=== PATIENT | male | born 1940 | race Caucasian/White ===

== ENCOUNTER 2019-08-09 15:05 | Emergency (ER) | payer MEDICARE, MEDICAID, SELFPAY ==
[2019-08-09 15:05] VITALS: BP 115/54; PULSE 46; RESP 14; TEMP 36.8; O2SAT 98; BMI 24.4
--- NOTE | 2019-08-09 15:24 | XR_ITS ---
WS: [id number] XR lumbar spine 2-3V* [id number] REASON FOR EXAM: back pain FINDINGS: This study shows a compression deformity of the L1 vertebra. A mild scoliotic curve convex to the left is seen. The remaining lumbar spine show normal vertebral body heights and disc spaces. The lumbosacral angle was normal. XR/XR lumbar spine 2-3V* [id number] IMPRESSION: Impression fracture L1
--- NOTE | 2019-08-09 15:24 | XR_ITS ---
WS: [id number] XR chest 1V portable [id number] REASON FOR EXAM: back pain FINDINGS: Comparisons were made to August 25, 2010. mild scoliotic curve convex to the right. The heart and mediastinum are normal The lung mera are well aerated. No pneumonia, pleural effusion, pulmonary edema, or mass effect. No osseous abnormalities. The hilum and apices are normal. XR/XR chest 1V portable [id number] IMPRESSION: Negative chest Scoliotic curve convex to the right.
--- NOTE | 2019-08-09 15:30 | ED_ITS ---
HPI - Abdominal Pain General: Chief Complaint: Abdominal Pain Stated Complaint: ABD PAIN Time Seen by Provider: 08/09/19 15:08 History of Present Illness: HPI narrative: Patient was seen by his PCP for abdominal pain yesterday. He called the PCP back today and reported right-sided low back pain and was instructed to come to the emergency room. Patient denies any abdominal pain. He states his right low back hurts but only when he moves. He denies fall or other injury. MD elicited complaint: abdominal pain Pertinent past history: none Onset (ago): day(s) Pain Consistency: constant Location: R flank Severity: severe Quality: stabbing and sharp Radiation: none Exacerbating factors: movement Relieving factors: nothing Review of Systems General: Reports: 10 or more systems reviewed and unremarkable except in HPI and below PFSH ED 2 PFSH: Social History Smoking and tobacco status: never smoked Physical Exam Const: COMMON NORMALS: no acute distress, healthy appearing and well nourished GENERAL APPEARANCE: cooperative and well developed HENMT: COMMON NORMALS: normocephalic and atraumatic HEAD & SCALP: normal to inspection, normocephalic and atraumatic Eye: GENERAL EYE: appearance normal, both eyes and all related structures Neck/C-Spine: COMMON NORMALS: full ROM, no lymphadenopathy and no meningeal signs GENERAL: Yes normal visual inspection CERVICAL SPINE: Yes cervical ROM normal and Yes normal cervical lordosis Chest: COMMONS NORMALS: normal inspection of the chest and normal palpation of entire chest wall Resp: COMMON NORMALS: normal respiratory effort, clear to auscultation bilaterally and percussion normal AUSCULTATION: clear to auscultation bilaterally PERCUSSION: percussion normal Cardio: COMMON NORMALS: regular rate, regular rhythm, S1 normal heart sound present and S2 normal heart sound present JUGULAR VENOUS DISTENTION: no JVD PALPATION: normal PMI RATE: regular rate RHYTHM: regular rhythm HEART SOUNDS: S1 normal heart sound present and S2 normal heart sound present GI: COMMON NORMALS: Soft to palpation and No hepatosplenomegaly present INSPECTION: Yes normal to inspection PALPATION: Yes Soft to palpation and Yes No hepatosplenomegaly present PERCUSSION: normal to percussion : COMMON NORMALS: Yes no CVA tenderness BLADDER/KIDNEY EXAM: Yes no CVA tenderness Back/Pelvis: COMMON NORMALS: no CVA tenderness, thoracic and lumbar spine normal to inspection and thoraco-lumbar ROM normal Extremity: COMMON NORMALS: normal to inspection, full ROM and capillary refill normal Neuro: MENINGEAL SIGNS: Yes no meningeal signs Skin: COMMON NORMALS: no rashes or lesions noted, no wounds and turgor normal GENERAL SKIN EXAM: no rashes or lesions noted, elasticity normal and turgor normal LESIONS: no lesions RASHES: no rashes TRAUMA: no lacerations or abrasions HAIR: normal NAILS: normal Course Vital Signs: Vital signs: Vital Signs Temperature 98.2 F 08/09/19 15:05 Pulse Rate 46 L 08/09/19 15:05 Respiratory Rate 14 08/09/19 15:05 Blood Pressure 115/54 08/09/19 15:05 Pulse Oximetry 98 08/09/19 15:05 MDM - Abdominal Pain Lab Data: Labs: Lab Results 08/09/19 Range/Units 15:40 WBC 3.5 L (4.0-10.0) 10^3/ uL RBC 4.52 (4.1-5.3) 10^6/u L Hgb 14.1 (11.7-16.6) g/dL Hct 43.8 (42.0-52.0) % MCV 96.9 H (80-94) fL MCH 31.2 (28.0-34.0) pg MCHC 32.2 (30.0-36.0) g/dL RDW 13.2 (12.1-15.1) % Plt Count 196 (130-400) 10^3/c mm MPV 9.7 (7.4-10.4) fL Neut % (Auto) 67.8 % Lymph % (Auto) 15.1 % [place] % (Auto) 16.2 % Eos % (Auto) 0.0 % Baso % (Auto) 0.6 % Neut # (Auto) 2.4 (1.8-7.7) 10^3/u L Lymph # (Auto) 0.5 L (0.8-4.8) 10^3/u L [place] # (Auto) 0.6 (0.2-0.9) 10^3/u L Eos # (Auto) 0.0 (0.0-0.8) 10^3/u L Baso # (Auto) 0.0 (0.0-0.1) 10^3/u L Nucleated RBC % (a uto) 0 % Nucleated RBCs # 0.0 /100WBC Discharge Plan Discharge Condition: Stable Prescriptions: No Action multivitamin Tablet 1 tab PO DAILY RF: 0 donepezil 10 mg Tablet 10 mg PO DAILY RF: 0 Tylenol Extra Strength 500 mg Tablet 1,000 mg PO Q6H PRN (Reason: Pain) RF: 0 guaifenesin 100 mg/5 mL Liquid 200 mg PO Q6H PRN (Reason: Cough) RF: 0 zonisamide 100 mg Capsule 400 mg PO DAILY RF: 0 Milk of Magnesia 400 mg/5 mL Suspension 30 ml PO DAILY PRN (Reason: Constipation) RF: 0 Colace 100 mg Capsule 200 mg PO BEDTIME RF: 0 ammonium lactate 12 % Cream 1 applic TOPICAL BID RF: 0 Vitamin D3 25 mcg (1,000 unit) Capsule 25 mcg PO DAILY RF: 0 Namenda 10 mg Tablet 10 mg PO BID RF: 0 Coding Level of Care Code ED Can Intake Worker for Chg Fwd Exam Comprehensive
[2019-08-09 15:50] LABS: Basophils % 0.6 %; Hematocrit 43.8 % (42.0-52.0); Hemoglobin 14.1 g/dL (11.7-16.6); Lymphocytes # 0.5 10^3/uL (0.8-4.8); Lymphocytes % 15.1 %; Mean Corpuscular HGB Conc 32.2 g/dL (30.0-36.0); Mean Corpuscular Hemoglobin 31.2 pg (28.0-34.0); Mean Corpuscular Volume 96.9 fL (80-94); Mean Platelet Volume 9.7 fL (7.4-10.4); Monocytes # 0.6 10^3/uL (0.2-0.9); Monocytes % 16.2 %; Neutrophils # 2.4 10^3/uL (1.8-7.7); Neutrophils % 67.8 %; Nucleated Red Blood Cells % 0 %; Platelet Count 196 10^3/cmm (130-400); Red Blood Count 4.52 10^6/uL (4.1-5.3); Red Cell Distribution Width 13.2 % (12.1-15.1); White Blood Count 3.5 10^3/uL (4.0-10.0)
[2019-08-09 16:08] LABS: Alanine Aminotransferase 19 U/L (0-41); Albumin Level 4.3 g/dL (3.5-5.2); Alkaline Phosphatase 51 IU/L (40-130); Anion Gap 13.6 (5-19); Aspartate Amino Transferase 22 U/L (0-40); Blood Urea Nitrogen 18 mg/dL (8-23); Calcium 9.2 mg/dL (8.5-10.5); Carbon Dioxide 26 mmol/L (22-29); Chloride 105 mmol/L (98-107); Globulin 1.8 g/dL (1.3-4.6); Glucose 101 mg/dL (65-115); Osmolality Calculated 289 mOsm/kg (285-295); Potassium 3.6 mmol/L (3.5-5.1); Sodium 141 mmol/L (136-145); Total Bilirubin 0.4 mg/dL (0.15-1.2); Total Protein 6.1 g/dL (6.6-8.7)
[2019-08-09 16:48] VITALS: BP 117/50; PULSE 54; RESP 18; O2SAT 99
== END 2019-08-09 17:11 | disposition home or self-care (01) ==
PROVIDERS: Emergency Provider Family Medicine; Family Provider Family Medicine; PCP Family Medicine
DX: R10.9 Unspecified abdominal pain (principal)
CPT/HCPCS: 12345; 36415; 71045; 72100; 80053; 85025; 99282; 99283

== ENCOUNTER 2019-08-28 08:18 | Outpatient (CLI) | payer MEDICARE, MEDICAID, SELFPAY ==
--- NOTE | 2019-08-28 08:30 | USCV_ITS ---
Alessandro Jensen Age: 79 Gender: M : 1940 Exam Date: 08/28/2019 09:03 Ordering Phys: Kris Watson MD Technologist: Bishnu Miles Exam Location: [facility] [place] Indication: ABNORMAL EKG BP: 143 / 83 HR: 47 Rhythm: Sinus Technical Quality: Good MEASUREMENTS (Male / Female) Normal Values 2D ECHO LV Diastolic Diameter PLAX 4.1 cm 4.2 - 5.9 / 3.9 - 5.3 cm LV Systolic Diameter PLAX 2.5 cm IVS Diastolic Thickness 1.0 cm 0.6 - 1.0 / 0.6 - 0.9 cm IVS Systolic Thickness 1.7 cm LVPW Diastolic Thickness 1.2 cm 0.6 - 1.0 / 0.6 - 0.9 cm LVPW Systolic Thickness 1.2 cm LVOT Diameter 2.3 cm LV Ejection Fraction 2D Teich 69.3 % LV Ejection Fraction MOD 2C 69.1 % LV Ejection Fraction 2C AL 68.9 % LA Diameter 3.6 cm LA Width 3.8 cm LA Height 4.8 cm RA Width 3.6 cm RA Height 4.3 cm Aorta at Sinotubular Diameter 3.2 cm M-MODE LV Diastolic Diameter MM 5.6 cm 4.2 - 5.9 / 3.9 - 5.3 cm LV Systolic Diameter MM 3.2 cm LV Ejection Fraction MM Teich 72.9 % IVS Diastolic Thickness MM 1.0 cm 0.6 - 1.0 / 0.6 - 0.9 cm IVS Systolic Thickness MM 1.6 cm LVPW Diastolic Thickness MM 0.8 cm 0.6 - 1.0 / 0.6 - 0.9 cm LVPW Systolic Thickness MM 1.4 cm RV Diastolic Diameter MM 1.6 cm Aortic Annulus Diameter 3.2 cm LA Ao Ratio MM 1.2 MV E Point Septal Separation 0.9 cm DOPPLER AV Peak Velocity 131.0 cm/s LVOT Peak Velocity 103.0 cm/s AV Area Cont Eq vti 2.8 cm squared AV Area Cont Eq pk 3.2 cm squared MV Area PHT 3.9 cm squared Mitral E to A Ratio 1.0 MV E' Velocity 9.0 cm/s Mitral E to MV E' Ratio 6.5 Mitral E to LV E' Lateral Ratio 6.9 Mitral E to LV E' Septal Ratio 6.2 TR Peak Velocity 182.0 cm/s TR Peak Gradient 13.2 mmHg TV Peak E Velocity 90.0 cm/s Right Atrial Pressure 3.0 mmHg Pulmonary Artery Systolic Pressu 16.2 mmHg PV Peak Velocity 111.0 cm/s FINDINGS Left Ventricle Normal left ventricular cavity size. Normal left ventricular systolic function. No regional wall motion abnormalities. Left ventricular ejection fraction is estimated at 55 %. Grade I/IV diastolic dysfunction (abnormal relaxation filling pattern), normal to mildly elevated filling pressures. Right Ventricle The right ventricle is normal in size and function. Right Atrium The right atrium is normal in size. Left Atrium The left atrium is normal in size. Mitral Valve Mildly thickened mitral valve. No mitral valve stenosis. Trace mitral valve regurgitation. Aortic Valve Mild aortic valve calcification. No aortic valve stenosis. Trace aortic valve regurgitation. Tricuspid Valve Structurally normal tricuspid valve without significant stenosis or regurgitation. Pulmonary artery systolic pressure is normal. Pulmonic Valve Structurally normal pulmonic valve without significant stenosis. There is no pulmonic regurgitation. Pericardium Normal pericardium without effusion. Aorta Normal ascending aorta dimension. CONCLUSIONS 1-Normal left ventricular cavity size. Normal left ventricular systolic function. No regional wall motion abnormalities. Left ventricular ejection fraction is estimated at 55 %. Grade I/IV diastolic dysfunction (abnormal relaxation filling pattern), normal to mildly elevated filling pressures. 2-There is no pericardial effusion. 3-No significant valve abnormalities. 4-Pulmonary artery systolic pressure is within normal limits. 5-Right atrial pressure is around 5 mm of mercury. 6-There are no prior echocardiogram studies to compare. Vahid Munson MD (Electronically Signed) Final Date: 28 August 2019 17:43 S
== END 2019-08-28 08:19 | disposition home or self-care (01) ==
PROVIDERS: Family Provider Family Medicine; PCP Family Medicine; Visit Provider Family Medicine
DX: R94.31 Abnormal electrocardiogram [ECG] [EKG] (principal); I51.81 Takotsubo syndrome
CPT/HCPCS: 93306

== ENCOUNTER 2019-12-10 07:47 | Outpatient (CLI) | payer MEDICARE, MEDICAID, SELFPAY ==
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
== END 2019-12-10 07:48 | disposition home or self-care (01) ==
PROVIDERS: PCP Family Medicine; Visit Provider Family Medicine
DX: R13.10 Dysphagia, unspecified (principal); T17.920A Food in respiratory tract, part unspecified causing asphyxiation, initial encounter; X58.XXXA Exposure to other specified factors, initial encounter
CPT/HCPCS: 74230; 92611

== ENCOUNTER 2019-12-14 09:31 | Outpatient (RCR) | payer MEDICARE, MEDICAID, SELFPAY | END 2019-12-22 23:59 | disposition home or self-care (01) | LOC: SST 09:31 | PROVIDERS: PCP Family Medicine; Referring Provider Family Medicine; Visit Provider Family Medicine | DX: T17.920A Food in respiratory tract, part unspecified causing asphyxiation, initial encounter (principal) | CPT/HCPCS: 92526; 92610 ==

== ENCOUNTER 2021-04-01 08:57 | Emergency (ER) | payer MEDICARE, MEDICAID, SELFPAY ==
[2021-04-01 09:05] VITALS: BP 118/56; PULSE 68; RESP 15; TEMP 37.1; O2SAT 98
[2021-04-01 09:11] VITALS: BP 108/65; PULSE 69; RESP 16; O2SAT 97
--- NOTE | 2021-04-01 09:29 | XR_ITS ---
WS: [id number] XR chest 1V portable [id number] REASON FOR EXAM: crackling in left lung base upon exam FINDINGS: Moderate tortuosity the thoracic aorta without aneurysmal dilatation. No significant cardiomegaly. There are hazy and reticular lung opacities seen in the periphery of both lower to mid lung mera. No pleural abnormality. Mild to moderate degenerative changes in the shoulder joints. XR/XR chest 1V portable [id number] IMPRESSION: Pulmonary opacities which are compatible with subacute pneumonitis. Location an d character of opacities suggestive of Covid pneumonitis.
--- NOTE | 2021-04-01 09:35 | W.ED.WEAKNES ---
Documented by User: LANE Main 04/02/21 07:21 HPI - Weakness General: Chief complaint: Weakness Stated complaint: GENERAL WEAKNESS Time Seen by Provider: 04/01/21 09:13 History of Present Illness: Patient is an 80-year-old male who comes to the ED with generalized weakness. He has no other complaints. Patient was sent over here to the ED for [facility]. Patient has some testicular swelling and was scheduled for an outpatient ultrasound here at 9:30 PM. Patient denies any other symptoms. Patient recently had Covid and finished self quarantine last week. Associated symptoms: Denies chest pain, chills, dysuria, fever(s), headache(s), nausea or vomiting Review of Systems Const: Reports: fatigue (generalized weakness); Denies: fever(s) or chills Eyes: Denies: change in vision or eye discomfort ENMT: Denies: throat pain, odynophagia, nasal discharge or nasal congestion Card: Denies: chest pain, palpitations, edema, swelling of feet/ankles, dyspnea on exertion or orthopnea Resp: Denies: dyspnea, productive cough or non-productive cough GI: Denies: abdominal pain, nausea, vomiting, diarrhea, constipation or hematochezia : Reports: scrotal swelling; Denies: flank pain, difficulty urinating, dysuria or hematuria Musc: Denies: neck pain, back pain or extremity swelling Skin/Breast: Denies: rash or new lesions Neuro: Denies: headache(s), numbness in extremities or weakness in extremities PFS ED PFSH: Medical History Memory impairment No pertinent family history Organic affective disorder Traumatic brain injury Social History Smoking and tobacco status: never smoked Physical Exam Const: COMMON NORMALS: no acute distress and alert EXAM LIMITATIONS: altered mental status (Patient has dementia.) HENMT: COMMON NORMALS: normocephalic HEAD & SCALP: normocephalic MOUTH: Normal oral and palatal mucosa present THROAT: posterior oropharynx normal and uvula midline Neck/C-Spine: COMMON NORMALS: supple GENERAL: Yes normal visual inspection Resp: COMMON NORMALS: normal respiratory effort, No retractions, No use of accessory muscles and clear to auscultation bilaterally AUSCULTATION: clear to auscultation bilaterally Cardio: COMMON NORMALS: regular rate, regular rhythm, S1 normal heart sound present, S2 normal heart sound present, No gallops present (Cardio), No clicks present (Cardio), No murmurs present (Cardio) and Peripheral pulses 2+ throughout RATE: regular rate RHYTHM: regular rhythm HEART SOUNDS: S1 normal heart sound present and S2 normal heart sound present PERIPHERAL PULSES: Peripheral pulses 2+ throughout GI: COMMON NORMALS: Normal to inspection, nondistended, normoactive bowel sounds present, Soft to palpation, non-tender and no masses PALPATION: Yes Soft to palpation : COMMON NORMALS: Yes no CVA tenderness BLADDER/KIDNEY EXAM: Yes no CVA tenderness Back/Pelvis: COMMON NORMALS: no CVA tenderness Extremity: COMMON NORMALS: normal to inspection Neuro: COMMON NORMALS: moves all extremities SENSORIUM/ORIENTATION: Yes alert Skin: GENERAL SKIN EXAM: dry skin Course Vital Signs: Vital signs: Vital Signs Temperature 98.8 F 04/01/21 09:05 Pulse Rate 69 04/01/21 09:11 Respiratory Rate 16 04/01/21 09:11 Blood Pressure 108/65 04/01/21 09:11 Pulse Oximetry 97 04/01/21 09:11 MDM - Weakness Medical Decision Making Patient is a 80-year-old male comes to the ED via EMS with generalized weakness. He was sent over from [facility]. Patient has some scrotal swelling that he is set up for an outpatient ultrasound at 9:30 AM today. Patient was recently diagnosed with COVID-19 and just finished his self quarantine last week at facility. He has no other complaints. Vitals are stable. Exam benign. Chest x-ray showed some possible signs of Covid pneumonitis. CBC was unremarkable. CMP was unremarkable. Patient was diagnosed generalized weakness and discharged directly over to radiology so he can go to his scheduled outpatient ultrasound imaging this morning. Dr. Vasquez came in and saw patient as well and agreed with plan. Lab Data I reviewed the patient's lab results. : 04/01/21 10:26 04/01/21 10:26 Radiology Impressions Chest X-Ray 04/01/21 09:29 IMPRESSION: Pulmonary opacities which are compatible with subacute pneumonitis. Location and character of opacities suggestive of Covid pneumonitis. Laboratory Results WBC 6.8 10^3/uL (4.0-10.0) 04/01/21 10: RBC 4.55 10^6/uL (4.1-5.3) 04/01/21 10:26 Hgb 14.2 g/dL (11.7-16.6) 04/01/21 10:26 Hct 42.1 % (42.0-52.0) 04/01/21 10:26 MCV 92.5 fl (80-94) 04/01/21 10:26 MCH 31.2 pg (28.0-34.0) 04/01/21 10: MCHC 33.7 g/dL (30.0-36.0) 04/01/21 10: RDW 12.2 % (12.1-15.1) 04/01/21 10: Plt Count 329 10^3/cmm (130-400) 04/01/21 10: MPV 9.4 fL (7.4-10.4) 04/01/21 10:26 Neut % (Auto) 78.3 % 04/01/21 10:26 Lymph % (Auto) 6.2 % 04/01/21 10:26 [place] % (Auto) 15.0 % 04/01/21 10:26 Eos % (Auto) 0.0 % 04/01/21 10:26 Baso % (Auto) 0.1 % 04/01/21 10: Neut # (Auto) 5.34 10^3/uL (1.8-7.7) 04/01/21 10:26 Lymph # (Auto) 0.4 10^3/uL (0.8-4.8) L 04/01/21 10:26 [place] # (Auto) 1.0 10^3/uL (0.2-0.9) H 04/01/21 10:26 Eos # (Auto) 0.0 10^3/uL (0.0-0.8) 04/01/21 10: Baso # (Auto) 0.0 10^3/uL (0.0-0.1) 04/01/21 10:26 Nucleated RBC % (auto) 0 % 04/01/21 10:26 Nucleated RBCs # 0.0 /100WBC 04/01/21 10:26 Sodium 137 mmol/L (136-145) 04/01/21 10:26 Potassium 3.9 mmol/L (3.5-5.1) 04/01/21 10:26 Chloride 105 mmol/L (98-107) 04/01/21 10:26 Carbon Dioxide 20 mmol/L (22-29) L 04/01/21 10:26 Anion Gap 15.9 (5-19) 04/01/21 10:26 BUN 19 mg/dL (8-23) 04/01/21 10:26 Creatinine 1.0 mg/dL (0.7-1.2) 04/01/21 10:26 GFR Calculation Not Reportable 04/01/21 10:26 Glucose 97 mg/dL (65-115) 04/01/21 10:26 Calculated Osmolality 286 mOsm/kg (285-295) 04/01/21 10:26 Calcium 9.3 mg/dL (8.5-10.5) 04/01/21 10:26 Total Bilirubin 1.1 mg/dL (0.15-1.2) 04/01/21 10:26 AST 22 U/L (0-40) 04/01/21 10:26 ALT 23 U/L (0-41) 04/01/21 10:26 Alkaline Phosphatase 61 IU/L (40-130) 04/01/21 10:26 Total Protein 6.7 g/dL (6.6-8.7) 04/01/21 10:26 Albumin 3.7 g/dL (3.5-5.2) 04/01/21 10:26 Globulin 3.0 g/dL (1.3-4.6) 04/01/21 10:26 Discharge Plan Discharge Patient Disposition: Home Clinical Impression: Generalized weakness Condition: Stable Prescriptions: No Action multivitamin Tablet 1 tab PO DAILY 0RF donepezil 10 mg Tablet 10 mg PO DAILY 0RF Tylenol Extra Strength 500 mg Tablet 1,000 mg PO Q6H PRN (Reason: Pain) 0RF guaifenesin 100 mg/5 mL Liquid 200 mg PO Q6H PRN (Reason: Cough) 0RF zonisamide 100 mg Capsule 400 mg PO DAILY 0RF Milk of Magnesia 400 mg/5 mL Suspension 30 ml PO DAILY PRN (Reason: Constipation) 0RF Colace 100 mg Capsule 200 mg PO BEDTIME 0RF ammonium lactate 12 % Cream 1 applic TOPICAL BID 0RF Vitamin D3 25 mcg (1,000 unit) Capsule 25 mcg PO DAILY 0RF Namenda 10 mg Tablet 10 mg PO BID 0RF Tylenol-Codeine #3 300-30 mg tablet 1 tab PO Q6H PRN (Reason: pain) Qty: 10 0RF Discharge Orders: Discharge ED (Routine); Ordered 04/01/21 Ordered By: Deion King Referrals: Kris Watson MD [Primary Care Provider] - Discharge Diet: Regular Discharge Activity: Increase activity as tolerated Patient Instructions: Weakness (Generalized) Activity Restrictions/Additional Instructions: Follow-up with medical provider as directed in 3 to 5 days for reevaluation. Continue taking all home medications as previously prescribed. Return to the ER or your medical provider if condition worsens. Please read and understand discharge instructions. Thank you for choosing [facility] for your healthcare needs today. Please realize this is an emergency room and that we are providing you with a medical screening exam and this may not be complete and all inclusive of all the testing and or work up that you may need to determine your ailment or severity of your illness. It is very important that you follow up as instructed or that you return to the Emergency Department should you have concerns or if your condition changes or worsens in any way. Coding Level of Care Code ED Curtain Supervisor for Chg Fwd Exam Comprehensive Documented by User: Maurilio Hernandez DO 04/02/21 10:05 HPI - Weakness General: Chief complaint: Weakness Stated complaint: GENERAL WEAKNESS Time Seen by Provider: 04/01/21 09:13 [facility] ED PFSH: Medical History Memory impairment No pertinent family history Organic affective disorder Traumatic brain injury Social History Smoking and tobacco status: never smoked Course Vital Signs: Vital signs: Vital Signs Temperature 98.8 F 04/01/21 09:05 Pulse Rate 69 04/01/21 09:11 Respiratory Rate 16 04/01/21 09:11 Blood Pressure 108/65 04/01/21 09:11 Pulse Oximetry 97 04/01/21 09:11 MDM - Weakness Medical Decision Making Patient is a 80-year-old male comes to the ED via EMS with generalized weakness. He was sent over from [facility]. Patient has some scrotal swelling that he is set up for an outpatient ultrasound at 9:30 AM today. Patient was recently diagnosed with COVID-19 and just finished his self quarantine last week at facility. He has no other complaints. Vitals are stable. Exam benign. Chest x-ray showed some possible signs of Covid pneumonitis. CBC was unremarkable. CMP was unremarkable. Patient was diagnosed generalized weakness and discharged directly over to radiology so he can go to his scheduled outpatient ultrasound imaging this morning. Dr. Vasquez came in and saw patient as well and agreed with plan. Seen and evaluated patient chart reviewed and patient discussed with midlevel. Agree with assessment and plan. No change in recommendations. HEENT cardiovascular respiratory exam is all normal. Lab Data : 04/01/21 10:26 04/01/21 10:26 Radiology Impressions Chest X-Ray 04/01/21 09:29 IMPRESSION: Pulmonary opacities which are compatible with subacute pneumonitis. Location and character of opacities suggestive of Covid pneumonitis. Laboratory Results WBC 6.8 10^3/uL (4.0-10.0) 04/01/21 10:26 RBC 4.55 10^6/uL (4.1-5.3) 04/01/21 10:26 Hgb 14.2 g/dL (11.7-16.6) 04/01/21 10:26 Hct 42.1 % (42.0-52.0) 04/01/21 10:26 MCV 92.5 fl (80-94) 04/01/21 10:26 MCH 31.2 pg (28.0-34.0) 04/01/21 10:26 MCHC 33.7 g/dL (30.0-36.0) 04/01/21 10:26 RDW 12.2 % (12.1-15.1) 04/01/21 10:26 Plt Count 329 10^3/cmm (130-400) 04/01/21 10:26 MPV 9.4 fL (7.4-10.4) 04/01/21 10:26 Neut % (Auto) 78.3 % 04/01/21 10:26 Lymph % (Auto) 6.2 % 04/01/21 10:26 [place] % (Auto) 15.0 % 04/01/21 10:26 Eos % (Auto) 0.0 % 04/01/21 10:26 Baso % (Auto) 0.1 % 04/01/21 10:26 Neut # (Auto) 5.34 10^3/uL (1.8-7.7) 04/01/21 10:26 Lymph # (Auto) 0.4 10^3/uL (0.8-4.8) L 04/01/21 10:26 [place] # (Auto) 1.0 10^3/uL (0.2-0.9) H 04/01/21 10:26 Eos # (Auto) 0.0 10^3/uL (0.0-0.8) 04/01/21 10:26 Baso # (Auto) 0.0 10^3/uL (0.0-0.1) 04/01/21 10:26 Nucleated RBC % (auto) 0 % 04/01/21 10: Nucleated RBCs # 0.0 /100WBC 04/01/21 10:26 Sodium 137 mmol/L (136-145) 04/01/21 10:26 Potassium 3.9 mmol/L (3.5-5.1) 04/01/21 10:26 Chloride 105 mmol/L (98-107) 04/01/21 10:26 Carbon Dioxide 20 mmol/L (22-29) L 04/01/21 10:26 Anion Gap 15.9 (5-19) 04/01/21 10:26 BUN 19 mg/dL (8-23) 04/01/21 10:26 Creatinine 1.0 mg/dL (0.7-1.2) 04/01/21 10:26 GFR Calculation Not Reportable 04/01/21 10:26 Glucose 97 mg/dL (65-115) 04/01/21 10:26 Calculated Osmolality 286 mOsm/kg (285-295) 04/01/21 10:26 Calcium 9.3 mg/dL (8.5-10.5) 04/01/21 10:26 Total Bilirubin 1.1 mg/dL (0.15-1.2) 04/01/21 10:26 AST 22 U/L (0-40) 04/01/21 10:26 ALT 23 U/L (0-41) 04/01/21 10:26 Alkaline Phosphatase 61 IU/L (40-130) 04/01/21 10:26 Total Protein 6.7 g/dL (6.6-8.7) 04/01/21 10:26 Albumin 3.7 g/dL (3.5-5.2) 04/01/21 10:26 Globulin 3.0 g/dL (1.3-4.6) 04/01/21 10:26 Discharge Plan Discharge Patient Disposition: Home Clinical Impression: Generalized weakness Condition: Stable Prescriptions: No Action multivitamin Tablet 1 tab PO DAILY 0RF donepezil 10 mg Tablet 10 mg PO DAILY 0RF Tylenol Extra Strength 500 mg Tablet 1,000 mg PO Q6H PRN (Reason: Pain) 0RF guaifenesin 100 mg/5 mL Liquid 200 mg PO Q6H PRN (Reason: Cough) 0RF zonisamide 100 mg Capsule 400 mg PO DAILY 0RF Milk of Magnesia 400 mg/5 mL Suspension 30 ml PO DAILY PRN (Reason: Constipation) 0RF Colace 100 mg Capsule 200 mg PO BEDTIME 0RF ammonium lactate 12 % Cream 1 applic TOPICAL BID 0RF Vitamin D3 25 mcg (1,000 unit) Capsule 25 mcg PO DAILY 0RF Namenda 10 mg Tablet 10 mg PO BID 0RF Tylenol-Codeine #3 300-30 mg tablet 1 tab PO Q6H PRN (Reason: pain) Qty: 10 0RF Discharge Orders: Discharge ED (Routine); Ordered 04/01/21 Ordered By: Deion King Referrals: Kris Watson MD [Primary Care Provider] - Discharge Diet: Regular Discharge Activity: Increase activity as tolerated Patient Instructions: Weakness (Generalized) Activity Restrictions/Additional Instructions: Follow-up with medical provider as directed in 3 to 5 days for reevaluation. Continue taking all home medications as previously prescribed. Return to the ER or your medical provider if condition worsens. Please read and understand discharge instructions. Thank you for choosing [facility] for your healthcare needs today. Please realize this is an emergency room and that we are providing you with a medical screening exam and this may not be complete and all inclusive of all the testing and or work up that you may need to determine your ailment or severity of your illness. It is very important that you follow up as instructed or that you return to the Emergency Department should you have concerns or if your condition changes or worsens in any way. Coding Level of Care Code ED Curtain Supervisor for Lupe Fwd Exam Comprehensive
[2021-04-01 10:34] LABS: Basophils % 0.1 %; Hematocrit 42.1 % (42.0-52.0); Hemoglobin 14.2 g/dL (11.7-16.6); Lymphocytes # 0.4 10^3/uL (0.8-4.8); Lymphocytes % 6.2 %; Mean Corpuscular HGB Conc 33.7 g/dL (30.0-36.0); Mean Corpuscular Hemoglobin 31.2 pg (28.0-34.0); Mean Corpuscular Volume 92.5 fl (80-94); Mean Platelet Volume 9.4 fL (7.4-10.4); Neutrophils # 5.34 10^3/uL (1.8-7.7); Neutrophils % 78.3 %; Nucleated Red Blood Cells % 0 %; Platelet Count 329 10^3/cmm (130-400); Red Blood Count 4.55 10^6/uL (4.1-5.3); Red Cell Distribution Width 12.2 % (12.1-15.1); White Blood Count 6.8 10^3/uL (4.0-10.0)
[2021-04-01 11:03] LABS: Alanine Aminotransferase 23 U/L (0-41); Albumin Level 3.7 g/dL (3.5-5.2); Alkaline Phosphatase 61 IU/L (40-130); Anion Gap 15.9 (5-19); Aspartate Amino Transferase 22 U/L (0-40); Blood Urea Nitrogen 19 mg/dL (8-23); Calcium 9.3 mg/dL (8.5-10.5); Carbon Dioxide 20 mmol/L (22-29); Chloride 105 mmol/L (98-107); Glucose 97 mg/dL (65-115); Osmolality Calculated 286 mOsm/kg (285-295); Potassium 3.9 mmol/L (3.5-5.1); Sodium 137 mmol/L (136-145); Total Bilirubin 1.1 mg/dL (0.15-1.2); Total Protein 6.7 g/dL (6.6-8.7)
== END 2021-04-01 10:28 | disposition home or self-care (01) ==
PROVIDERS: Emergency Provider Physician Assistant; PCP Family Medicine
DX: R53.1 Weakness (principal); Z87.820 Personal history of traumatic brain injury
CPT/HCPCS: 36415; 71045; 80053; 85025; 99282

== ENCOUNTER → 2021-04-08 14:26 | Outpatient (BNVA) | payer MEDICARE, MEDICAID, SELFPAY | PROVIDERS: PCP Family Medicine; Referring Provider Family Medicine; Visit Provider Urology | DX: C67.9 Malignant neoplasm of bladder, unspecified (principal); N32.89 Other specified disorders of bladder; N50.89 Other specified disorders of the male genital organs; Z20.822 Contact with and (suspected) exposure to COVID-19 | CPT/HCPCS: 87635 ==

== ENCOUNTER 2021-04-13 12:28 | Observation (INO) | payer MEDICARE, MEDICAID, SELFPAY ==
[2021-04-10 16:53] VITALS: BMI 19.8
[2021-04-13] VITALS (18 sets, daily range): BP systolic 105–138; BP diastolic 59–77; PULSE 51–107; RESP 16–23; TEMP 36.1–36.6; O2SAT 96–100
--- NOTE | 2021-04-13 09:54 | P.ANESASSM_ITS ---
Pre-Anesthetic Assessment Height/Weight: Height 1.85 m Weight 68.039 kg Preop Diagnosis: Newly diagnosed bladder cancer Operation Date: 04/13/21 09:55 Proposed Procedures p Cystoscopy n32.89(Not Applicable) - Taqueria Camacho MD s Transurethral Resection Bladder Tumor(Not Applicable) - Taqueria Camacho MD Familial anesthetic complications: None Was Beta Flori taken within 24 hours: N/A Was Clonidine taken within 24 hours: N/A Last intake: Intake Last Liquid Date 04/12/21 Last Liquid Time 16:00 Last Solid Date 04/12/21 Last Solid Time 16:00 Social No alcohol and No tobacco Exam alert, oriented x 3, clear to auscultation bilaterally and regular rate & rhythm Airway Cervical ROM: within normal limits Mallampati: Class II Dentition: full CV/HEM Holter monitor 2019 CONCLUSION: Sinus bradycardia to sinus tachycardia with rare ventricular ectopy and rare supraventricular ectopy as noted above.? No significant bradycardia.? No diary events entered.. [facility] scoliosis Anesthetic Plan ASA status: 3 Anesthesia: General Risk of > 500 ml blood loss (7ml/kg in children): No Medications/Allergies Home Medications Medication Instructions Recorded Confirmed Last Taken Type acetaminophen 500 mg tablet 1,000 mg PO Q6H PRN 08/09/19 04/13/21 1 Day Ago History (Tylenol Extra Strength) ~04/12/21 ammonium lactate 12 % topical cream 1 applic TOPICAL BID 08/09/19 04/13/21 1 Day Ago History ~04/12/21 cholecalciferol (vitamin D3) 25 25 mcg PO DAILY 08/09/19 04/13/21 1 Day Ago History mcg (1,000 unit) capsule (Vitamin ~04/12/21 D3) docusate sodium 100 mg capsule 200 mg PO BEDTIME 08/09/19 04/13/21 1 Day Ago History (Colace) ~04/12/21 donepezil 10 mg tablet 10 mg PO DAILY 08/09/19 04/13/21 1 Day Ago History ~04/12/21 guaifenesin 100 mg/5 mL oral liquid 200 mg PO Q6H PRN 08/09/19 04/13/21 1 Day Ago History ~04/12/21 magnesium hydroxide 400 mg/5 mL 30 ml PO DAILY PRN 08/09/19 04/13/21 1 Day Ago History oral suspension (Milk of Magnesia) ~04/12/21 memantine 10 mg tablet (Namenda) 10 mg PO BID 08/09/19 04/13/21 1 Day Ago History ~04/12/21 multivitamin 1 tab PO DAILY 08/09/19 04/13/21 1 Day Ago History ~04/12/21 zonisamide 100 mg capsule 400 mg PO DAILY 08/09/19 04/13/21 1 Day Ago History ~04/12/21 Allergies Allergy/AdvReac Type Severity Reaction Status Date / Time Penicillins Allergy Unknown Verified 04/13/21 09:40 Sulfa (Sulfonamide Allergy Unknown Verified 04/13/21 09:40 Antibiotics) [facility] Anesthesia Medical History Bladder mass Mass of right testicle Memory impairment No pertinent family history Organic affective disorder Traumatic brain injury Urinary incontinence Family History Father Liver disease Mother Cancer Social History Smoking and tobacco status: former smoker Alcohol intake: never Marital status: Single Current occupational status: disabled History of recent travel: No Data Anesthesia Cardiac Studies: Echocardiogram Ultrasound 08/28/19 Holter Monitor 08/17/19
[2021-04-13] MEDS: sodium chloride 0.9% 1,000 ML 30 ML (09:59)
--- NOTE | 2021-04-13 09:59 | P.HPUD_ITS ---
Surgery/Procedure H&P Update DATE OF PROCEDURE: April 13, 2021 DATE H&P PERFORMED: 04/08/21 H&P UPDATE INFORMATION: I have reviewed H&P completed within last 30 days, I have examined patient prior to procedure, No changes to prior documentation and H&P is in [facility] EMR on date indicated CHANGES TO PREVIOUS DOCUMENTATION: Patient's Covid test for screening purposes was positive. He was then found out that he had had a documented Covid in February of this year. He was asymptomatic and was felt to be low risk to proceed given that history. PREOP DIAGNOSIS: Newly diagnosed bladder cancer PLANNED PROCEDURE: Operation Date: 04/13/21 09:55 Proposed Procedures p Cystoscopy n32.89(Not Applicable) - Taqueria Camacho MD s Transurethral Resection Bladder Tumor(Not Applicable) - Taqueria Camacho MD
--- NOTE | 2021-04-13 10:16 | P.OP_ITS ---
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 Good hemostasis. Specimen sent for evaluation. Brief History: After routine preoperative evaluation examination and obtaining of informed consent he was taken to the operating suite on 04/13/2021 where general anesthesia was administered without difficulty after appropriate timeout was performed, SCDs confirmed to be functioning, preoperative antibiotics administered, beta-rick protocol confirmed. Prepped and draped in the usual sterile fashion in dorsolithotomy position paying careful attention to avoiding pressure points. 21 [place] cystoscope with 30 degree lens was introduced into the urethral meatus and advanced into the bladder to videoscopy. The bladder was systematically examined. The bladder tumor identified in clinic was confirmed and also confirmed to be well away from the right ureteral orifice No other lesions identified. Urethra was calibrated with Susy sounds and easily accommodated 30 [place]. 2% lidocaine jelly was instilled into the urethra then a 25 [place] continuous- flow resectoscope sheath with visual obturator in place was advanced into the bladder without difficulty. The gyrus bipolar system was utilized with super loop for resection and button probe for fulguration of the base. The tumor was confirmed to not involve the right ureteral orifice. Tumor was resected from its most intraluminal portion to the base where it was completely resected and several bites down into the muscle were identified. No clear evidence of muscle involvement noted. The button probe was then utilized to fulgurate the base of the tumor for complete hemostasis. Bladder was drained with a 20 [place] three-way Young catheter with plug placed in the irrigation port. Tolerated the procedure well without complication. Awakened in the operating room and returned to the recovery room in stable condition. PLANS: 1. Admit to [facility] for observation status. 2. Anticipate mitomycin instillation on postop day #1
[2021-04-13] MEDS: levofloxacin-dextrose 5 % 500 MG/100 ML PREMIX 100 MG IV (10:25)
[2021-04-13] MEDS: lidocaine 2% Urojet 20 mL TOPICAL (10:48)
[2021-04-13 10:52] LABS: Anion Gap 14.1 (5-19); Blood Urea Nitrogen 17 mg/dL (8-23); Calcium 9.5 mg/dL (8.5-10.5); Carbon Dioxide 25 mmol/L (22-29); Chloride 109 mmol/L (98-107); Glucose 85 mg/dL (65-115); Osmolality Calculated 299 mOsm/kg (285-295); Potassium 4.1 mmol/L (3.5-5.1); Sodium 144 mmol/L (136-145)
--- NOTE | 2021-04-13 12:40 | ANE.PACU2 ---
Inpatient post-anesthesia follow up: Airway intact: Yes Vital signs: Temperature 97.2 F Pulse Rate 69 Respiratory Rate 16 Blood Pressure 106/70 Pulse Oximetry 99 Oxygen Delivery Me thod Room Air Oxygen Flow Rate Fraction of Inspir ed Oxygen Hydration adequate: Yes Nausea and vomiting: No Pain level: 3 Mental status: Baseline
[2021-04-13] MEDS: donepezil 5 MG Tablet 10 MG PO (13:49)
[2021-04-13] MEDS: zonisamide 100 MG Capsule 400 MG PO (13:49)
[2021-04-13] MEDS: docusate sodium 100 mg Capsule 200 MG PO (18:02)
[2021-04-13] MEDS: memantine 5 mg tablet 10 MG PO (18:02)
--- NOTE | 2021-04-13 18:37 | PC.NURSE ---
PATIENT HAS DONE WELL SINCE ARRIVAL TO THE FLOOR. THIS NURSE HAS BEEN ABLE TO TITRATE DOWN CBI TO A VERY SLOW DRIP. URINE PALE PINK TO CLEAR IN COLOR. 1500ML OF CBI INFUSED, 800ML OF URINE OUTPUT. PATIENT HAS NO COMPLAINTS OF PAIN.
[2021-04-14 04:00] VITALS: BP 114/65; PULSE 62; RESP 20; TEMP 36.5; O2SAT 99
--- NOTE | 2021-04-14 06:19 | PC.NURSE ---
SHIFT SUMMARY Has had a good night. Is pleasant. Obvious slow mentally from TBI. Has denied any pain or discomfort. CBI has ran at slow drip through shift with urine staying very llight pink to pale yellow. No clots noted.
[2021-04-14 08:00] VITALS: BP 124/57; PULSE 60; RESP 18; TEMP 36.4; O2SAT 96
[2021-04-14] MEDS: zonisamide 100 MG Capsule 400 MG PO (08:10)
[2021-04-14] MEDS: memantine 5 mg tablet 10 MG PO (08:10)
[2021-04-14] MEDS: donepezil 5 MG Tablet 10 MG PO (08:10)
[2021-04-14] MEDS: docusate sodium 100 mg Capsule 200 MG PO (08:10)
[2021-04-14] MEDS: magnesium hydroxide 30 mL UDC PO (08:10)
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
[2021-04-14 11:57] VITALS: BP 125/63; PULSE 66; RESP 18; TEMP 36.7; O2SAT 100
--- NOTE | 2021-04-14 12:22 | P.DS_ITS ---
Discharge Providers Date of Admission: 04/13/21 12:28 Date of Discharge: April 14, 2021 Attending Provider at Admission: Taqueria Camacho MD Attending Provider at Discharge: Taqueria Camacho MD Primary Care Provider: Kris Watson MD Diagnoses at Discharge Discharge Diagnosis (1) Bladder mass: Status: Acute Reason for Visit Reason for Visit: bladder tumor Hospital Course Hospital Course He was admitted through Outpatient Surgery for transurethral section of bladder tumor. Intraoperative findings confirmed papillary lesion consistent with TCCA that was identified in the clinic. No other lesions were identified. Tumor was completely resected and he did well. Young catheter was removed and he voided well with clearing urine. He was discharged on the afternoon of postoperative day #1 in stable condition. Prior to catheter removal mitomycin was stilled into his bladder. Plan was to follow-up in approximately 2 months with cystoscopy. Physical Exam Narrative: He was alert and oriented no acute distress. Abdomen is soft nontender no palpable masses Nonlabored respiration. Regular rate and rhythm. Urine was clear. Urinary Catheter Management: 3-way Urethral CBI: Cath Placed During This Visit: yes, but has since been removed by the nurse Reason for Continuing Indwelling Catheter: Decision to DC Catheter Urinary Catheter Date of Insertion: 04/13/21 Urinary Catheter Time of Insertion: 11:00 Date Urinary Catheter Removed: 04/14/21 Time Urinary Catheter Discontinued: 14:08 Discharge Data Studies Completed and Pending Completed Studies During Hospitalization Category Date Time Status Pathology: Surgical [PTH] Routine Pth 04/13/21 11:41 Completed Laboratory Results Sodium 144 mmol/L (136-145) 04/13/21 09:52 Potassium 4.1 mmol/L (3.5-5.1) 04/13/21 09:52 Chloride 109 mmol/L (98-107) H 04/13/21 09:52 Carbon Dioxide 25 mmol/L (22-29) 04/13/21 09:52 Anion Gap 14.1 (5-19) 04/13/21 09:52 BUN 17 mg/dL (8-23) 04/13/21 09:52 Creatinine 1.0 mg/dL (0.7-1.2) 04/13/21 09:52 GFR Calculation Not Reportable 04/13/21 09:52 Glucose 85 mg/dL (65-115) 04/13/21 09:52 Calculated Osmolality 299 mOsm/kg (285-295) H 04/13/21 09:52 Calcium 9.5 mg/dL (8.5-10.5) 04/13/21 09:52 Vitals Last Vital Signs Temp 97.8 F 04/14/21 16:17 Pulse 63 04/14/21 16:17 Resp 18 04/14/21 16:17 BP 115/62 04/14/21 16:17 Pulse Ox 92 04/14/21 16:17 Discharge Plan Discharge Patient Disposition: Home Condition: Stable Prescriptions: Continued multivitamin Tablet 1 tab PO DAILY 0RF donepezil 10 mg Tablet 10 mg PO DAILY 0RF acetaminophen [Tylenol Extra Strength] 500 mg Tablet 1,000 mg PO Q6H PRN (Reason: Pain) 0RF guaifenesin 100 mg/5 mL Liquid 200 mg PO Q6H PRN (Reason: Cough) 0RF zonisamide 100 mg Capsule 400 mg PO DAILY 0RF magnesium hydroxide [Milk of Magnesia] 400 mg/5 mL Suspension 30 ml PO DAILY PRN (Reason: Constipation) 0RF docusate sodium [Colace] 100 mg Capsule 200 mg PO BEDTIME 0RF ammonium lactate 12 % Cream 1 applic TOPICAL BID 0RF cholecalciferol (vitamin D3) [Vitamin D3] 25 mcg (1,000 unit) Capsule 25 mcg PO DAILY 0RF memantine [Namenda] 10 mg Tablet 10 mg PO BID 0RF Discharge Orders: Discharge Order (Routine); Ordered 04/14/21 Ordered By: Taqueria Camacho Referrals: [facility] [Outside] Taqueria Camacho MD [Physician] - 05/29/21 11:45 am (Cystoscopy) Discharge Diet: Usual diet Discharge Activity: Limit activity as instructed Patient Instructions: Cystoscopy, Transurethral Resection of Bladder Tumors (DC), Opioid Safety Activity Restrictions/Additional Instructions: 1. Aggressively treat constipation. Straining to have a bowel movement is just is potentially risky as straining to lift postoperatively. 2. He was emptying well before discharge. His bladder was scanned multiple times demonstrating low postvoid residuals. He has not been able to control his urine well but when he leaks he leaks far more than what was left over on bladder scan. 3. Next follow-up will be approximately 1 month for a cystoscopy as part of surveillance for bladder cancer. 4. We may consider resampling of the area depending upon that cystoscopy. That would require anesthesia etc. Please call if you have any concerns or questions. Discharge Attestations Time Spent in Discharge Care*: less than 30 min Quality Metrics Clinical Quality Measures [ No reported AMI, CVA or VTE this stay] Coding Level of Care Code Acute g [facility] note Diagnoses Bladder mass N32.89
--- NOTE | 2021-04-14 12:51 | PC.NURSE ---
patient's phillips removed and patient given urinal for 6 bottle void.
--- NOTE | 2021-04-14 13:37 | PC.NURSE ---
patient incont of urine.
--- NOTE | 2021-04-14 14:36 | PC.NURSE ---
updated Dr Camacho on patient's urine output and bladder scan results
--- NOTE | 2021-04-14 15:36 | PC.NURSE ---
Notified Shubham Pickett that patient is being discharge today, Mya said she will send someone to get patient.
[2021-04-14 15:41] VITALS: BP 115/62; PULSE 63; RESP 18; TEMP 36.6; O2SAT 92
--- NOTE | 2021-04-14 16:14 | PC.NURSE ---
discharge instructions given to Mya at [facility]. Mya verbalized understanding. Mya came and picked up patient via wheelchair.
[2021-04-14 16:17] VITALS: BP 115/62; PULSE 63; RESP 18; TEMP 36.6; O2SAT 92
== END 2021-04-14 16:18 | disposition home or self-care (01) ==
LOC: MEDSURG 12:28
PROVIDERS: Admitting Provider Urology; PCP Family Medicine; Visit Provider Urology
PROC: 0TJB8ZZ Inspection of Bladder, Via Natural or Artificial Opening Endoscopic (ICD-10-PCS; CPT 52000; principal; 2021-04-13 09:45)
PROC: 0TBB8ZZ Excision of Bladder, Via Natural or Artificial Opening Endoscopic (ICD-10-PCS; CPT 52235; 2021-04-13 09:45)
DX: C67.9 Malignant neoplasm of bladder, unspecified (principal); Z87.891 Personal history of nicotine dependence
CPT/HCPCS: 52235; 51798; 80048; 88305; G0378; J1956; J2405; J3010; J3490; J7030; J9280

== ENCOUNTER 2021-05-08 13:27 | Outpatient (CLI) | payer MEDICARE, MEDICAID, SELFPAY ==
--- NOTE | 2021-05-08 13:35 | CTR_ITS ---
PROCEDURE INFORMATION: Exam: CT Chest With Contrast; Diagnostic Exam date and time: 05/08/2021 2:11 PM Age: 80 years old Clinical indication: Condition or disease; Primary cancer: Testicular cancer staging TECHNIQUE: Imaging protocol: Diagnostic computed tomography of the chest with contrast. Radiation optimization: All CT scans at this facility use at least one of these dose optimization techniques: automated exposure control; mA and/or kV adjustment per patient size (includes targeted exams where dose is matched to clinical indication); or iterative reconstruction. Contrast material: OMNI 300; Contrast volume: 95 ml; Contrast route: INTRAVENOUS (IV); COMPARISON: CR XR chest 1V portable [id number] 04/01/2021 9:44 AM RADIATION DOSE METRICS: Total DLP (mGy-cm): 1717.67 FINDINGS: Lungs: Scattered areas of subpleural reticulation noted within the posterior lungs. Curvilinear bibasilar scarring noted. No consolidation. No masses. Pleural spaces: No pneumothorax. No pleural effusion. Heart: No cardiomegaly. No pericardial effusion. Aorta: No aortic aneurysm. Lymph nodes: No enlarged lymph nodes. Bones/joints: Generalized osseous demineralization. No acute fracture. No aggressive osseous lesion. Soft tissues: Unremarkable. PROCEDURE INFORMATION: Exam: CT Abdomen And Pelvis With Contrast Exam date and time: 05/08/2021 2:11 PM Age: 80 years old Clinical indication: Condition or disease; Primary cancer: Testicular cancer staging TECHNIQUE: Imaging protocol: Computed tomography of the abdomen and pelvis with contrast. Radiation optimization: All CT scans at this facility use at least one of these dose optimization techniques: automated exposure control; mA and/or kV adjustment per patient size (includes targeted exams where dose is matched to clinical indication); or iterative reconstruction. Contrast material: OMNI 300; Contrast volume: 95 ml; Contrast route: INTRAVENOUS (IV); COMPARISON: CR XR chest 1V portable [id number] 04/01/2021 9:44 AM RADIATION DOSE METRICS: Total DLP (mGy-cm): 1717.67 FINDINGS: Liver: 1 cm cyst noted in the left hepatic lobe. No suspicious liver mass. Gallbladder and bile ducts: Cholecystectomy. No ductal dilation. Pancreas: Normal. No ductal dilation. Spleen: Calcified granuloma in the spleen. No splenomegaly. Adrenal glands: Normal. No mass. Kidneys and ureters: Subcentimeter cysts in the anterior cortex of the left kidney and upper pole of the right kidney. No solid renal mass. No hydronephrosis. Stomach and bowel: No obstruction. No mucosal thickening. Appendix: No evidence of appendicitis. Intraperitoneal space: No free air. No significant fluid collection. Vasculature: No abdominal aortic aneurysm. Lymph nodes: No enlarged lymph nodes. Urinary bladder: Circumferential bladder wall thickening, likely secondary to chronic bladder outlet obstruction. Reproductive: Enlarged prostate. Bones/joints: Generalized osseous demineralization. Chronic appearing moderate anterior wedging of L1. No acute fracture. No aggressive osseous lesion. Soft tissues: Right inguinal hernia containing small bowel loops. CT/CT chest abd pel w con* IMPRESSION: No evidence of metastatic disease within the chest. IMPRESSION: 1. No evidence of metastatic disease within the abdomen/pelvis. 2. Right inguinal hernia containing small bowel loops. No bowel obstruction. 3. Enlarged prostate and bladder wall thickening which is likely secondary to chronic bladder outlet obstruction. COMMENTS: Consistent with the [employer]'s Incidental Findings Committee white paper (J Am Violeta Radiol 2018): Any incidental renal lesion less than 1 cm or classified as too small to characterize, or any incidental cystic renal lesion characterized as simple-appearing, is likely benign. No follow-up imaging is recommended for these lesions per consensus recommendations based on imaging criteria.
[2021-05-08] MEDS: iohexol 300 mg/mL 100 mL Btl IV (14:31)
== END 2021-05-08 13:28 | disposition home or self-care (01) ==
PROVIDERS: PCP Family Medicine; Visit Provider Family Medicine
DX: C62.90 Malignant neoplasm of unspecified testis, unspecified whether descended or undescended (principal); K40.90 Unilateral inguinal hernia, without obstruction or gangrene, not specified as recurrent; N40.0 Benign prostatic hyperplasia without lower urinary tract symptoms
CPT/HCPCS: 71260; 74177

== ENCOUNTER 2021-05-11 08:05 | Outpatient (CLI) | payer MEDICARE, MEDICAID, SELFPAY ==
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
[2021-05-11] MEDS: iohexol 300 mg/mL 100 mL Btl IV (08:20)
== END 2021-05-11 08:06 | disposition home or self-care (01) ==
LOC: RAD 08:06
PROVIDERS: PCP Family Medicine; Visit Provider Family Medicine
DX: R41.82 Altered mental status, unspecified (principal); C62.90 Malignant neoplasm of unspecified testis, unspecified whether descended or undescended; Q75.8 Other specified congenital malformations of skull and face bones
CPT/HCPCS: 70470

== ENCOUNTER → 2021-05-29 11:49 | Outpatient (BNVA) | payer MEDICARE, MEDICAID, SELFPAY | PROVIDERS: PCP Family Medicine; Visit Provider Urology | DX: C67.9 Malignant neoplasm of bladder, unspecified (principal) | CPT/HCPCS: 81003 ==

== ENCOUNTER 2021-09-02 11:31 | Emergency (ER) | payer MEDICARE, MEDICAID, SELFPAY ==
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
--- NOTE | 2021-09-02 12:34 | XRR_ITS ---
PROCEDURE INFORMATION: Exam: XR Chest Exam date and time: 09/02/2021 12:41 PM Age: 81 years old Clinical indication: Other: AMS TECHNIQUE: Imaging protocol: Radiologic exam of the chest. Views: 1 view. COMPARISON: CT chest abd pel w con* 05/08/2021 2:11 PM FINDINGS: Lungs: Unremarkable. No consolidation. Pleural spaces: Unremarkable. No pleural effusion. No pneumothorax. Heart/Mediastinum: Unremarkable. No cardiomegaly. Bones/joints: There is a thoracolumbar spine scoliosis. XR/XR chest 1V portable [id number] IMPRESSION: There are no acute concerning abnormalities.
--- NOTE | 2021-09-02 12:34 | CT_ITS ---
WS: [id number] CT ABDOMEN AND PELVIS WITH CONTRAST HISTORY: ams, abd pain, constipation TECHNIQUE: Imaging performed of the abdomen and pelvis with IV contrast. Single phase imaging of the abdomen. Coronal and sagittal reformats are submitted. All CT scans at [facility] use at [address] one of these dose optimization techniques: automated exposure control; mA and/or kV adjustment per patient size (includes targeted exams where dose is matched to clinical indication); or iterative re construction. IV CONTRAST: Omnipaque 350; 95 mL IV. Oral contrast: No DLP: 1669.88 mGy.cm COMPARISON: 05/08/2021 Lower thorax: Benign granuloma RIGHT lower lobe. Heart is normal size. No hiatal hernia. Liver/biliary system: Normal size liver. There is mild central bile duct dilatation. 10 mm cyst LEFT lobe of the liver. Portal vein is patent. Gallbladder: Prior cholecystectomy. Common bile duct is prominent. Pancreas: Normal size pancreas and pancreatic duct. No adjacent inflammation. Spleen: Normal size spleen. No mass or infarct. Adrenal glands: Normal. Right kidney: Normal. Left kidney: Small cortical cyst measures 6 mm. Mild perinephric stranding. No obstruction. Aorta: Mild atherosclerosis with no aneurysm. Lymphadenopathy: None. Free fluid: None. GI tract: Nondistended stomach. No small bowel obstruction. Mild diffuse fecal retention and constipa tion. More significant towards the sigmoid and rectum. Again noted is the RIGHT inguinal hernia conta ining a loop of small bowel. No ischemic changes or obstruction. Abdominal wall: Unremarkable abdominal wall. No hernia. Pelvis: Well-distended urinary bladder. RIGHT inguinal hernia contains a loop of small bowel Bones: Mild anterior wedging of L1, no change. CT/CT abdomen pelvis w con* [id number] IMPRESSION: 1. No acute abdominal or pelvic abnormalities. 2. RIGHT inguinal hernia contains a loop of small bowel. Similar to the prior studies with no obstruction at this time. 3. No adenopathy or ascites. 4. Prior cholecystectomy with mild central bile duct dilatation which may be p hysiologic.
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
--- NOTE | 2021-09-02 12:35 | ECG_ITS ---
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 Measurements Intervals [place] Rate: 42 P: 72 MO: 180 QRS: 18 QRSD: 90 T: 15 QT: 442 QTc: 373 Interpretive Statements SINUS BRADYCARDIA LOW QRS VOLTAGE IN PRECORDIAL LEADS [QRS DEFLECTION < 1.0 mV IN CHEST LEADS] No previous ECG available for comparison Electronically Signed On 09-02-2021 23:41:28 CDT by Beni Mejia M.D. [id number]
[2021-09-02 12:39] VITALS: BP 128/76; PULSE 75; RESP 18; TEMP 36.7; O2SAT 97
[2021-09-02 12:53] LABS: Glucose Point of Care 80 mg/dL (70-110)
--- NOTE | 2021-09-02 12:53 | PC.PHAR ---
pt is from [facility]pawel moreira nurse at [facility] states the pt took his am meds today and a dose of milk of mag today
[2021-09-02 13:15] LABS: Add Urine Microscopic? NO; Charge for UA Resulting for Rev
[2021-09-02 13:23] LABS: Bilirubin Urine Neg (Negative); Blood Urine Neg (Negative); Glucose Urine UA Norm (Normal); Ketones Urine Negative (Negative); Leukocyte Esterase Urine Negative (Negative); Nitrate Urine Negative (Negative); Protein Urine Neg (Negative); Urine Appearance Clear (CLEAR); Urine Color Yellow (Yellow); Urobilinogen Urine Norm (Negative); pH Urine 7 (5-7)
[2021-09-02 13:37] LABS: Alanine Aminotransferase 17 U/L (0-41); Albumin Level 4.2 g/dL (3.5-5.2); Alkaline Phosphatase 45 IU/L (40-130); Anion Gap 12.2 (5-19); Aspartate Amino Transferase 21 U/L (0-40); Blood Urea Nitrogen 20 mg/dL (8-23); Calcium 9.1 mg/dL (8.5-10.5); Carbon Dioxide 29 mmol/L (22-29); Chloride 108 mmol/L (98-107); Globulin 2.2 g/dL (1.3-4.6); Glucose 84 mg/dL (65-115); Lipase 80 U/L (13-60); Magnesium 2.2 mg/dL (1.7-2.3); NT Pro B Type Natriuretic Pept 479 pg/mL (0-450); Osmolality Calculated 302 mOsm/kg (285-295); Potassium 4.2 mmol/L (3.5-5.1); Sodium 145 mmol/L (136-145); Thyroid Stimulating Hormone 1.61 uIU/mL (0.27-4.20); Total Bilirubin 0.6 mg/dL (0.15-1.2); Total Protein 6.4 g/dL (6.6-8.7)
[2021-09-02 13:46] LABS: Hematocrit 40.9 % (42.0-52.0); Hemoglobin 13.6 g/dL (11.7-16.6); Lymphocytes # 0.5 10^3/uL (0.8-4.8); Lymphocytes % 15.5 %; Mean Corpuscular HGB Conc 33.3 g/dL (30.0-36.0); Mean Corpuscular Hemoglobin 30.8 pg (28.0-34.0); Mean Corpuscular Volume 92.7 fl (80-94); Mean Platelet Volume 10.3 fL (7.4-10.4); Monocytes # 0.4 10^3/uL (0.2-0.9); Monocytes % 12.2 %; Neutrophils # 2.41 10^3/uL (1.8-7.7); Nucleated Red Blood Cells % 0 %; Platelet Count 181 10^3/cmm (130-400); Red Blood Count 4.41 10^6/uL (4.1-5.3); Red Cell Distribution Width 13.1 % (12.1-15.1); White Blood Count 3.4 10^3/uL (4.0-10.0)
[2021-09-02 14:09] VITALS: BP 122/74; PULSE 78; RESP 18; TEMP 36.7; O2SAT 97
[2021-09-02] MEDS: sodium chloride 0.9% 1,000 ML 999 ML IV (14:29)
--- NOTE | 2021-09-02 14:35 | ECG_ITS ---
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 Measurements Intervals [place] Rate: 47 P: 101 HI: 182 QRS: 42 QRSD: 85 T: 33 QT: 439 QTc: 390 Interpretive Statements SINUS BRADYCARDIA WITH OCCASIONAL SUPRAVENTRICULAR PREMATURE COMPLEXES LOW QRS VOLTAGE IN PRECORDIAL LEADS [QRS DEFLECTION < 1.0 mV IN CHEST LEADS] No previous ECG available for comparison Electronically Signed On 09-02-2021 23:47:33 CDT by Beni Mejia M.D. [id number]
[2021-09-02 14:36] LABS: Troponin 5 2HR 18.09 ng/L (0-15)
[2021-09-02 14:39] VITALS: PULSE 70; RESP 18
[2021-09-02 15:14] LABS: Troponin(5th) Baseline 20 ng/L (0-15)
[2021-09-02] MEDS: iohexol 350 mg/mL 100 mL Btl IV (15:14)
[2021-09-02 15:15] LABS: Troponin 5 2HR Delta -1.91 ABS# (0-10)
[2021-09-02 16:09] VITALS: BP 126/78; PULSE 79; RESP 18; TEMP 36.7; O2SAT 99
[2021-09-02 17:22] LABS: Influenza A by IFA Negative (Negative); Influenza B by IFA Negative (Negative)
[2021-09-02 18:00] VITALS: BP 120/72; PULSE 76; RESP 18; TEMP 36.6; O2SAT 99
[2021-09-03 14:24] LABS: Quest SARS-CoV-2 RNA NOT DETECTED (NOT DETECTED)
== END 2021-09-02 20:09 ==
PROVIDERS: Emergency Provider Emergency Medicine; PCP Family Medicine
DX: K59.00 Constipation, unspecified (principal); K40.90 Unilateral inguinal hernia, without obstruction or gangrene, not specified as recurrent; Z85.51 Personal history of malignant neoplasm of bladder; Z87.820 Personal history of traumatic brain injury; Z87.891 Personal history of nicotine dependence; Z20.822 Contact with and (suspected) exposure to COVID-19
CPT/HCPCS: 36416; 70450; 71045; 74177; 80053; 81003; 82962; 83605; 83690; 83735; 83880; 84443; 84484; 85025; 87040; 87635; 87804; 93005; 96360; 99285; J7030; Q9967

== ENCOUNTER → 2021-09-07 14:11 | Outpatient (BNVA) | payer MEDICARE, MEDICAID, SELFPAY | PROVIDERS: PCP Family Medicine; Visit Provider Urology | DX: C67.9 Malignant neoplasm of bladder, unspecified (principal) | CPT/HCPCS: 52000; 81003; 99213 ==

== ENCOUNTER → 2021-11-24 10:12 | Outpatient (BNVA) | payer MEDICARE, MEDICAID, SELFPAY | PROVIDERS: PCP Family Medicine; Visit Provider Nurse Practitioner Family | DX: Z09 Encounter for follow-up examination after completed treatment for conditions other than malignant neoplasm (principal) | CPT/HCPCS: 99212 ==

== ENCOUNTER → 2022-02-23 13:26 | Outpatient (BNVA) | payer MEDICARE, MEDICAID, SELFPAY | PROVIDERS: PCP Family Medicine; Visit Provider Urology | DX: C67.9 Malignant neoplasm of bladder, unspecified (principal); N30.00 Acute cystitis without hematuria | CPT/HCPCS: 52000; 81003; 87077; 87086; 87186; 99213 ==

== ENCOUNTER 2022-04-16 11:20 | Outpatient (RCR) | payer MEDICARE, MEDICAID, SELFPAY | END 2022-04-20 23:59 | disposition home or self-care (01) | LOC: SST 11:20 | PROVIDERS: PCP Family Medicine; Visit Provider Family Medicine | DX: R13.13 Dysphagia, pharyngeal phase (principal) | CPT/HCPCS: 92610 ==

== ENCOUNTER 2022-05-10 10:19 | Outpatient (CLI) | payer MEDICARE, MEDICAID, SELFPAY ==
--- NOTE | 2022-05-10 10:29 | FL_ITS ---
WS: [id number] Modified barium swallow, 05/10/2022 Clinical Data: Other dysphagia Comparison: None. Fluoroscopy time: 2min [id number] # of spot films: 0 Findings: The patient demonstrated lip seal weakness and poor anterior posterior propulsion of the barium. Ther e was frequent penetration of the barium but no aspiration. There is vallecular pooling of the barium tablet and there is delayed esophageal emptying after the barium tablet entered the esophagus. FL/FL barium swallow modifd [id number] Impression: 1. Lip seal weakness with poor anterior posterior propulsion of barium. 2. Frequent penetration of barium without aspiration. 3. Follicular pooling of the barium tablet with delayed esophageal emptying onc e the tablet entered the esophagus.
== END 2022-05-10 10:20 | disposition home or self-care (01) ==
PROVIDERS: PCP Family Medicine; Visit Provider Family Medicine
DX: R13.19 Other dysphagia (principal)
CPT/HCPCS: 74230; 92611

== ENCOUNTER 2022-05-26 06:00 | Outpatient (RCR) | payer MEDICARE, MEDICAID, SELFPAY | END 2022-05-26 16:47 | disposition home or self-care (01) | LOC: SST 06:00 | PROVIDERS: Visit Provider Family Medicine | DX: R13.19 Other dysphagia (principal); T17.928D Food in respiratory tract, part unspecified causing other injury, subsequent encounter; X58.XXXD Exposure to other specified factors, subsequent encounter | CPT/HCPCS: 92610 ==

== ENCOUNTER 2022-07-18 04:08 | Emergency (ER) | payer MEDICARE, MEDICAID, SELFPAY ==
[2022-07-18 04:10] VITALS: BP 124/63; PULSE 61; RESP 20; TEMP 36.9; O2SAT 97; BMI 22.4
--- NOTE | 2022-07-18 04:13 | ED_ITS ---
HPI - Abdominal Pain General: Chief Complaint: Nausea/Vomiting/Diarrhea Stated Complaint: ABD PAIN Time Seen by Provider: 07/18/22 04:12 Source: patient and EMS Mode of arrival: EMS Limitations: physical limitation History of Present Illness: 82-year-old male who is here from [facility] for rehab medicine light he has intellectual disability history is difficult to obtain from him due to this. From what he told EMS when he told me he had went to the bathroom felt like his abdomen was in pain and he vomited once he states that after he vomited he felt improved he states he has no complaints now he feels improved there was some redness vomit he states he ate some tomatoes tonight. Denies pain or fever currently Associated Symptoms: Reports nausea and vomiting; Denies chills, diarrhea, dysuria and fever(s) Review of Systems Const: Denies: fever(s), chills, body aches or change in appetite ENMT: Denies: throat pain or dental pain Card: Denies: chest pain Resp: Denies: dyspnea GI: Reports: abdominal pain, nausea and vomiting; Denies: diarrhea : Denies: dysuria Musc: Denies: neck pain or back pain Skin/Breast: Denies: rash Neuro: Denies: headache(s) PFSH ED PFSH: Medical History Bladder cancer Bladder mass Mass of right testicle Memory impairment No pertinent family history Organic affective disorder Traumatic brain injury Urinary incontinence Family History Father Liver disease Mother Cancer Social History Smoking and tobacco status: former smoker Alcohol intake: never Substance/Drug Use: never Marital status: Single Current occupational status: disabled Physical Exam Const: COMMON NORMALS: no acute distress, patient oriented x3 and healthy appearing HENMT: COMMON NORMALS: normocephalic and atraumatic HEAD & SCALP: normocephalic and atraumatic Eye: COMMON NORMALS: Equal, round and reactive pupils present and EOMs intact bilaterally PUPIL: Yes Equal, round and reactive pupils present Neck/C-Spine: COMMON NORMALS: full ROM and supple Chest: COMMONS NORMALS: normal inspection of the chest and normal palpation of entire chest wall Resp: COMMON NORMALS: normal respiratory effort, No retractions, No use of accessory muscles and clear to auscultation bilaterally AUSCULTATION: clear to auscultation bilaterally Cardio: COMMON NORMALS: regular rate, regular rhythm and No murmurs present (Cardio) RATE: regular rate RHYTHM: regular rhythm GI: COMMON NORMALS: Normal to inspection, nondistended, normoactive bowel sounds present, Soft to palpation, non-tender and no masses PALPATION: Yes Soft to palpation Extremity: COMMON NORMALS: normal to inspection and full ROM Neuro: COMMON NORMALS: patient oriented x3, moves all extremities and no focal motor deficits Psych: COMMON NORMALS: mental status grossly normal, Normal thought process present and cooperative THOUGHT PROCESS: Normal thought process present Skin: COMMON NORMALS: no rashes or lesions noted and no wounds GENERAL SKIN EXAM: no rashes or lesions noted Course Vital Signs: Vital signs: Vital Signs Temperature 98.4 F 07/18/22 04:10 Pulse Rate 61 07/18/22 04:10 Respiratory Rate 20 H 07/18/22 04:10 Blood Pressure 124/63 07/18/22 04:10 Pulse Oximetry 97 07/18/22 04:10 MDM - Abdominal Pain Medical Decision Making Patient presents here with abdominal pain he is well-appearing here he has been in no distress exam is benign he has had no vomiting here blood work is all normal no signs of any bleeding he is stable for discharge he is to follow PCP and return if worsening. Medical Records I reviewed the patient's medical records. Lab Data I reviewed the patient's lab results. 07/18/22 04:18 07/18/22 04:18 Labs/Radiology: Laboratory Results WBC 3.4 10^3/uL (4.0-10.0) L 07/18/22 04:18 RBC 4.64 10^6/uL (4.1-5.3) 07/18/22 04:18 Hgb 14.4 g/dL (11.7-16.6) 07/18/22 04:18 Hct 43.4 % (42.0-52.0) 07/18/22 04:18 MCV 93.5 fl (80-94) 07/18/22 04:18 MCH 31.0 pg (28.0-34.0) 07/18/22 04:18 MCHC 33.2 g/dL (30.0-36.0) 07/18/22 04:18 RDW 13.3 % (12.1-15.1) 07/18/22 04:18 Plt Count 207 10^3/cmm (130-400) 07/18/22 04:18 MPV 9.1 fL (7.4-10.4) 07/18/22 04:18 Neut % (Auto) 66.6 % 07/18/22 04:18 Lymph % (Auto) 18.9 % 07/18/22 04:18 [place] % (Auto) 13.9 % 07/18/22 04:18 Eos % (Auto) 0.0 % 07/18/22 04:18 Baso % (Auto) 0.0 % 07/18/22 04:18 Neut # (Auto) 2.25 10^3/uL (1.8-7.7) 07/18/22 04:18 Lymph # (Auto) 0.6 10^3/uL (0.8-4.8) L 07/18/22 04:18 [place] # (Auto) 0.5 10^3/uL (0.2-0.9) 07/18/22 04:18 Eos # (Auto) 0.0 10^3/uL (0.0-0.8) 07/18/22 04:18 Baso # (Auto) 0.0 10^3/uL (0.0-0.1) 07/18/22 04:18 Nucleated RBC % (auto) 0 % 07/18/22 04:18 Nucleated RBCs # 0.0 /100WBC 07/18/22 04:18 Sodium 143 mmol/L (136-145) 07/18/22 04:18 Potassium 3.6 mmol/L (3.5-5.1) 07/18/22 04:18 Chloride 108 mmol/L (98-107) H 07/18/22 04:18 Carbon Dioxide 26 mmol/L (22-29) 07/18/22 04:18 Anion Gap 12.6 (5-19) 07/18/22 04:18 BUN 23 mg/dL (8-23) 07/18/22 04:18 Creatinine 1.2 mg/dL (0.7-1.2) 07/18/22 04:18 GFR Calculation Not Reportable 07/18/22 04:18 Glucose 107 mg/dL (65-115) 07/18/22 04:18 Calculated Osmolality 300 mOsm/kg (285-295) H 07/18/22 04:18 Calcium 9.0 mg/dL (8.5-10.5) 07/18/22 04:18 Total Bilirubin 0.7 mg/dL (0.15-1.2) 07/18/22 04:18 AST 23 U/L (0-40) 07/18/22 04:18 ALT 17 U/L (0-41) 07/18/22 04:18 Alkaline Phosphatase 51 U/L (40-130) 07/18/22 04:18 Total Protein 6.2 g/dL (6.6-8.7) L 07/18/22 04:18 Albumin 4.1 g/dL (3.5-5.2) 07/18/22 04:18 Globulin 2.1 g/dL (1.3-4.6) 07/18/22 04:18 Lipase 50 U/L (13-60) 07/18/22 04:18 Discharge Plan Discharge Patient Disposition: Home Clinical Impression: Vomiting Condition: Stable Prescriptions: New ondansetron 4 mg tablet,disintegrating 4 mg PO Q6H PRN (Reason: nausea and vomiting) Qty: 14 0RF No Action ciprofloxacin HCl 500 mg tablet 500 mg PO BID Qty: 20 1RF multivitamin Tablet 1 tab PO DAILY@07 donepezil 10 mg Tablet 10 mg PO BEDTIME@20 acetaminophen [Tylenol Extra Strength] 500 mg Tablet 1,000 mg PO .Q4-6H PRN (Reason: Pain) zonisamide 100 mg Capsule 400 mg PO DAILY@07 magnesium hydroxide [Milk of Magnesia] 400 mg/5 mL Suspension 30 ml PO .Q4-6H PRN (Reason: Constipation) docusate sodium [Colace] 100 mg Capsule 200 mg PO BEDTIME@20 ammonium lactate 12 % Cream 1 applic TOPICAL BID@07,20 Rx Instructions: on bilat legs memantine [Namenda] 10 mg Tablet 10 mg PO BID@07,20 dextromethorphan-guaifenesin [Guaifenesin-DM] 10-100 mg/5 mL Liquid 10 ml PO Q6H PRN (Reason: Cough) cholecalciferol (vitamin D3) [Vitamin D3] 50 mcg (2,000 unit) Capsule 50 mcg PO DAILY@07 fluoride (sodium) [Denta 5000 Plus] 1.1 % Cream See Rx Instructions .ROUTE .COMPLEX Rx Instructions: brush on teeth bid *do not eat or drink for 30 mins after* Discharge Orders: Discharge ED (Routine); Ordered 07/18/22 Ordered By: Irene Romero Discharge Diet: Advance as tolerated Discharge Activity: Resume usual activity Patient Instructions: Acute Nausea and Vomiting (ED) Coding Level of Care Code ED Dope Dry House Operator for Lupe Navarro
[2022-07-18 04:23] LABS: Hematocrit 43.4 % (42.0-52.0); Hemoglobin 14.4 g/dL (11.7-16.6); Lymphocytes # 0.6 10^3/uL (0.8-4.8); Lymphocytes % 18.9 %; Mean Corpuscular HGB Conc 33.2 g/dL (30.0-36.0); Mean Corpuscular Volume 93.5 fl (80-94); Mean Platelet Volume 9.1 fL (7.4-10.4); Monocytes # 0.5 10^3/uL (0.2-0.9); Monocytes % 13.9 %; Neutrophils # 2.25 10^3/uL (1.8-7.7); Neutrophils % 66.6 %; Nucleated Red Blood Cells % 0 %; Platelet Count 207 10^3/cmm (130-400); Red Blood Count 4.64 10^6/uL (4.1-5.3); Red Cell Distribution Width 13.3 % (12.1-15.1); White Blood Count 3.4 10^3/uL (4.0-10.0)
[2022-07-18] MEDS: ondansetron 2 mg/ML SDV 2 mL 4 MG IVP (04:26)
[2022-07-18 04:38] LABS: Alanine Aminotransferase 17 U/L (0-41); Albumin Level 4.1 g/dL (3.5-5.2); Alkaline Phosphatase 51 U/L (40-130); Anion Gap 12.6 (5-19); Aspartate Amino Transferase 23 U/L (0-40); Blood Urea Nitrogen 23 mg/dL (8-23); Carbon Dioxide 26 mmol/L (22-29); Chloride 108 mmol/L (98-107); Creatinine Clr Calc Pharmacy 51.9758; Globulin 2.1 g/dL (1.3-4.6); Glucose 107 mg/dL (65-115); Lipase 50 U/L (13-60); Osmolality Calculated 300 mOsm/kg (285-295); Potassium 3.6 mmol/L (3.5-5.1); Sodium 143 mmol/L (136-145); Total Bilirubin 0.7 mg/dL (0.15-1.2); Total Protein 6.2 g/dL (6.6-8.7)
[2022-07-18 06:04] VITALS: BP 129/71; PULSE 94; RESP 18; TEMP 37; O2SAT 96; BMI 22.4
--- NOTE | 2022-07-23 12:34 | DCPLANNER ---
body shop manager called patient due to no primary care physician - patient sees Dr. Watson
== END 2022-07-18 06:04 | disposition home or self-care (01) ==
PROVIDERS: Emergency Provider Emergency Medicine; PCP Family Medicine
DX: R11.11 Vomiting without nausea (principal); Z87.891 Personal history of nicotine dependence; Z85.51 Personal history of malignant neoplasm of bladder; Z87.820 Personal history of traumatic brain injury
CPT/HCPCS: 80053; 83690; 85025; 96374; 99284; J2405

== ENCOUNTER 2022-08-26 19:59 | Emergency (ER) | payer MEDICARE, MEDICAID, SELFPAY ==
[2022-08-26] VITALS (8 sets, daily range): BP systolic 110–125; BP diastolic 47–68; PULSE 47–68; RESP 14–24; TEMP 36.9; O2SAT 92–99
--- NOTE | 2022-08-26 20:11 | W.ED.CHESTPA ---
HPI - Chest Pain General: Chief Complaint: Chest Pain Stated Complaint: CP Time Seen by Provider: 08/26/22 20:11 History of Present Illness: Mr. Jensen is a 82-year-old gentleman with with history of TBI presented to the emergency department for evaluation of chest pain. He notes isolated left anterior chest pain with radiation to back. This started within the last about 20 minutes at rest and has subsequently resolved. No other typical cardiac features. No other specific changes in health, exacerbating, or alleviating factors identified. Onset (ago): minute(s) Timing of current episode: now resolved Prior episodes: No Onset: during rest Severity: mild Quality: sharp Associated symptoms: Reports no associated symptoms Review of Systems General: Reports: 10 or more systems reviewed and unremarkable except in HPI and below PFSH ED PFSH: Medical History Bladder cancer Bladder mass Mass of right testicle Memory impairment No pertinent family history Organic affective disorder Traumatic brain injury Urinary incontinence Family History Father Liver disease Mother Cancer Social History Smoking and tobacco status: former smoker Alcohol intake: never Substance/Drug Use: never Marital status: Single Current occupational status: disabled Physical Exam Const: COMMON NORMALS: alert GENERAL APPEARANCE: cooperative and well developed HENMT: COMMON NORMALS: normocephalic and atraumatic HEAD & SCALP: normocephalic and atraumatic Eye: COMMON NORMALS: conjunctivae normal CONJUNCTIVA: Yes conjunctivae normal SCLERA: sclerae normal Neck/C-Spine: COMMON NORMALS: supple GENERAL: Yes trachea midline CERVICAL SPINE: No pain with cervical ROM and No Cervical spine tenderness Resp: COMMON NORMALS: clear to auscultation bilaterally EFFORT & INSPECTION: Yes able to speak in complete sentences AUSCULTATION: clear to auscultation bilaterally Cardio: COMMON NORMALS: regular rate and regular rhythm RATE: regular rate RHYTHM: regular rhythm GI: COMMON NORMALS: Soft to palpation PALPATION: Yes Soft to palpation and No Tenderness to palpation present (GI) Extremity: GENERAL: Yes normal exam except as noted and No edema Neuro: COMMON NORMALS: moves all extremities SENSORIUM/ORIENTATION: Yes alert and No Orientation impaired Psych: COMMON NORMALS: mental status grossly normal and Normal thought process present THOUGHT PROCESS: Normal thought process present Course Vital Signs: Vital signs: Vital Signs Temperature 98.5 F 08/26/22 20:10 Pulse Rate 55 L 08/26/22 23:18 Respiratory Rate 24 H 08/26/22 23:00 Blood Pressure 121/68 08/26/22 23:18 Pulse Oximetry 97 08/26/22 23:18 Oxygen Delivery Me thod Room Air 08/26/22 21:30 MDM - Chest Pain Medical Decision Making 82-year-old gentleman presenting for evaluation of short episode of chest pain that has subsequently resolved. Exam as above. Nontoxic. Nonreproducible on palpation. EKG demonstrates sinus bradycardia with nonspecific ST segment abnormalities, no STEMI. Labs with no significant hematologic or metabolic abnormality. Negative range 2-hour delta troponin. Lipase is mildly elevated though pain is not specifically epigastric in nature and no epigastric tenderness on palpation on repeat exam. We will send urine culture. Chest x-ray with no lobar consolidation or pneumothorax. Patient has not had recurrence during ED course. The results of ED evaluation were discussed with the patient including possible disposition options. I discussed risk stratification by heart score and estimated risk of major adverse cardiac events. The patient wishes to proceed with outpatient management. I discussed prescriptions and/or symptomatic cares (if applicable) including appropriate and responsible use, followup plan, and return precautions. The patient verbalized understanding and felt safe for discharge. Medical Records I reviewed the patient's medical records. Lab Data I reviewed the patient's lab results. 08/26/22 20:00 08/26/22 20:00 Radiology Impressions Chest X-Ray 08/26/22 20:23 IMPRESSION: Stable hyperaerated lungs consistent with deep inspiratory effort vs reactive airway disease vs mild COPD . Laboratory Results WBC 4.0 10^3/uL (4.0-10.0) 08/26/22 20:00 RBC 4.17 10^6/uL (4.1-5.3) 08/26/22 20:00 Hgb 12.9 g/dL (11.7-16.6) 08/26/22 20:00 Hct 39.1 % (42.0-52.0) L 08/26/22 20:00 MCV 93.8 fl (80-94) 08/26/22 20:00 MCH 30.9 pg (28.0-34.0) 08/26/22 20:00 MCHC 33.0 g/dL (30.0-36.0) 08/26/22 20:00 RDW 13.2 % (12.1-15.1) 08/26/22 20:00 Plt Count 231 10^3/cmm (130-400) 08/26/22 20:00 MPV 9.7 fL (7.4-10.4) 08/26/22 20:00 Neut % (Auto) 65.1 % 08/26/22 20:00 Lymph % (Auto) 19.1 % 08/26/22 20:00 [place] % (Auto) 15.4 % 08/26/22 20:00 Eos % (Auto) 0.0 % 08/26/22 20:00 Baso % (Auto) 0.2 % 08/26/22 20:00 Neut # (Auto) 2.62 10^3/uL (1.8-7.7) 08/26/22 20:00 Lymph # (Auto) 0.8 10^3/uL (0.8-4.8) 08/26/22 20:00 [place] # (Auto) 0.6 10^3/uL (0.2-0.9) 08/26/22 20:00 Eos # (Auto) 0.0 10^3/uL (0.0-0.8) 08/26/22 20:00 Baso # (Auto) 0.0 10^3/uL (0.0-0.1) 08/26/22 20:00 Nucleated RBC % (auto) 0 % 08/26/22 20:00 Nucleated RBCs # 0.0 /100WBC 08/26/22 20:00 Sodium 143 mmol/L (136-145) 08/26/22 20:00 Potassium 4.1 mmol/L (3.5-5.1) 08/26/22 20:00 Chloride 108 mmol/L (98-107) H 08/26/22 20:00 Carbon Dioxide 26 mmol/L (22-29) 08/26/22 20:00 Anion Gap 13.1 (5-19) 08/26/22 20:00 BUN 23 mg/dL (8-23) 08/26/22 20:00 Creatinine 1.2 mg/dL (0.7-1.2) 08/26/22 20:00 GFR Calculation Not Reportable 08/26/22 20:00 Glucose 87 mg/dL (65-115) 08/26/22 20:00 Calculated Osmolality 299 mOsm/kg (285-295) H 08/26/22 20:00 Calcium 8.9 mg/dL (8.5-10.5) 08/26/22 20:00 Total Bilirubin 0.3 mg/dL (0.15-1.2) 08/26/22 20:00 AST 20 U/L (0-40) 08/26/22 20:00 ALT 14 U/L (0-41) 08/26/22 20:00 Alkaline Phosphatase 54 U/L (40-130) 08/26/22 20:00 Troponin T Baseline 17 ng/L (0-15) H 08/26/22 20:00 Troponin T 120 Minute 18.31 ng/L (0-15) H 08/26/22 21:43 Delta Troponin T 1.31 ABS# (0-10) 08/26/22 21:43 NT-Pro-B Natriuret Pep 258 pg/mL (0-450) 08/26/22 20:00 Total Protein 5.7 g/dL (6.6-8.7) L 08/26/22 20:00 Albumin 4.1 g/dL (3.5-5.2) 08/26/22 20:00 Globulin 1.6 g/dL (1.3-4.6) 08/26/22 20:00 Lipase 114 U/L (13-60) H 08/26/22 20:00 Urine Color Yellow (Yellow) 08/26/22 20:17 Urine Appearance Cloudy (CLEAR) A 08/26/22 20:17 Urine pH 6.5 (5-7) 08/26/22 20:17 Ur Specific [place] 1.015 (1.005-1.030) 08/26/22 20:17 Urine Protein Neg (Negative) 08/26/22 20:17 Urine Glucose (UA) Norm (Normal) 08/26/22 20:17 Urine Ketones Negative (Negative) 08/26/22 20:17 Urine Blood Neg (Negative) 08/26/22 20:17 Urine Nitrate Negative (Negative) 08/26/22 20:17 Urine Bilirubin Neg (Negative) 08/26/22 20:17 Urine Urobilinogen Neg mg/dL (Negative) 08/26/22 20:17 Ur Leukocyte Esterase 2+ (Negative) H 08/26/22 20:17 Urine RBC None /hpf (0-2) 08/26/22 20:17 Urine WBC 15-25 /hpf (0-5) H 08/26/22 20:17 Ur Squamous Epith Cells None /hpf (0-5) 08/26/22 20:17 Triple Phos Crystals 0-4 /hpf H 08/26/22 20:17 Amorphous Sediment Not Reportable 08/26/22 20:17 Urine Bacteria 3+ /hpf (NONE) H 08/26/22 20:17 Urine Mucus 2+ /hpf 08/26/22 20:17 Discharge Plan Discharge Patient Disposition: Home Clinical Impression: Chest pain Condition: Stable Prescriptions: No Action ciprofloxacin HCl 500 mg tablet 500 mg PO BID Qty: 20 1RF multivitamin Tablet 1 tab PO DAILY@07 donepezil 10 mg Tablet 10 mg PO BEDTIME@20 acetaminophen [Tylenol Extra Strength] 500 mg Tablet 1,000 mg PO .Q4-6H PRN (Reason: Pain) zonisamide 100 mg Capsule 400 mg PO DAILY@07 magnesium hydroxide [Milk of Magnesia] 400 mg/5 mL Suspension 30 ml PO .Q4-6H PRN (Reason: Constipation) docusate sodium [Colace] 100 mg Capsule 200 mg PO BEDTIME@20 ammonium lactate 12 % Cream 1 applic TOPICAL BID@ Rx Instructions: on bilat legs memantine [Namenda] 10 mg Tablet 10 mg PO BID@ dextromethorphan-guaifenesin [Guaifenesin-DM] 10-100 mg/5 mL Liquid 10 ml PO Q6H PRN (Reason: Cough) cholecalciferol (vitamin D3) [Vitamin D3] 50 mcg (2,000 unit) Capsule 50 mcg PO DAILY@07 fluoride (sodium) [Denta 5000 Plus] 1.1 % Cream See Rx Instructions .ROUTE .COMPLEX Rx Instructions: brush on teeth bid *do not eat or drink for 30 mins after* ondansetron 4 mg tablet,disintegrating 4 mg PO Q6H PRN (Reason: nausea and vomiting) Qty: 14 0RF Discharge Orders: Discharge ED (Routine); Ordered 08/26/22 Ordered By: Reilly Pérez Referrals: Kris Watson MD [Primary Care Provider] - Discharge Diet: Usual diet Discharge Activity: Resume usual activity Patient Instructions: Chest Pain (ED) Activity Restrictions/Additional Instructions: Thank you for visiting the emergency department. You were seen evaluated for episode of chest pain. The exact cause of your symptoms is unclear. At some point you are never low risk for adverse cardiac events however this would be extremely atypical for cardiac cause of chest pain. I will message case management for cardiology follow-up. Please follow-up with your primary care provider. Return for recurrent episodes of pain, shortness of breath, or anything else that you are concerned about and feel needs emergency department evaluation. Coding Level of Care Code ED Supervisor Tan Room for Lupe Navarro
--- NOTE | 2022-08-26 20:23 | XRR_ITS ---
PROCEDURE INFORMATION: Exam: XR Chest Exam date and time: 08/26/2022 8:37 PM Age: 82 years old Clinical indication: Pain; Chest pressure; Additional info: Cp TECHNIQUE: Imaging protocol: Radiologic exam of the chest. Views: 1 view. COMPARISON: CR XR chest 1V portable [id number] 09/02/2021 12:41 PM FINDINGS: Lungs: Stable right calcified hilar nodes and/or mediastinal nodes and/or lung nodules consistent with old granulomatous disease. Stable hyperaerated lungs consistent with deep inspiratory effort vs reactive airway disease vs mild COPD . Pleural spaces: Unremarkable. No pleural effusion. No pneumothorax. Heart/Mediastinum: Unremarkable. No cardiomegaly. Bones/joints: Dextroscoliosis. XR/XR chest 1V portable [id number] IMPRESSION: Stable hyperaerated lungs consistent with deep inspiratory effort vs reactive airway disease vs mild COPD .
--- NOTE | 2022-08-26 20:23 | ECG_ITS ---
[facility] Test Date: 2022-08-26 Pat Name: Alessandro Jensen Department: Room: Gender: Male Imcu Specialist: : 1940 Requested By: Reilly Pérez Order Number: [id number] Rhiannon MD: Dusty Rdz M.D. Measurements Intervals [place] Rate: 51 P: 80 VT: 166 QRS: 28 QRSD: 103 T: 16 QT: 425 QTc: 393 Interpretive Statements SINUS BRADYCARDIA Compared to ECG 09/02/2021 14:30:23 No significant changes Electronically Signed On 08-27-2022 7:58:33 CDT by Dusty Rdz M.D. [id number]
[2022-08-26 20:32] LABS: Basophils % 0.2 %; Hematocrit 39.1 % (42.0-52.0); Hemoglobin 12.9 g/dL (11.7-16.6); Lymphocytes # 0.8 10^3/uL (0.8-4.8); Lymphocytes % 19.1 %; Mean Corpuscular Hemoglobin 30.9 pg (28.0-34.0); Mean Corpuscular Volume 93.8 fl (80-94); Mean Platelet Volume 9.7 fL (7.4-10.4); Monocytes # 0.6 10^3/uL (0.2-0.9); Monocytes % 15.4 %; Neutrophils # 2.62 10^3/uL (1.8-7.7); Neutrophils % 65.1 %; Nucleated Red Blood Cells % 0 %; Platelet Count 231 10^3/cmm (130-400); Red Blood Count 4.17 10^6/uL (4.1-5.3); Red Cell Distribution Width 13.2 % (12.1-15.1)
[2022-08-26 20:45] LABS: Troponin(5th) Baseline 17 ng/L (0-15)
[2022-08-26 20:55] LABS: Alanine Aminotransferase 14 U/L (0-41); Albumin Level 4.1 g/dL (3.5-5.2); Alkaline Phosphatase 54 U/L (40-130); Anion Gap 13.1 (5-19); Aspartate Amino Transferase 20 U/L (0-40); Blood Urea Nitrogen 23 mg/dL (8-23); Calcium 8.9 mg/dL (8.5-10.5); Carbon Dioxide 26 mmol/L (22-29); Chloride 108 mmol/L (98-107); Creatinine Clr Calc Pharmacy 0.1451; Globulin 1.6 g/dL (1.3-4.6); Glucose 87 mg/dL (65-115); Lipase 114 U/L (13-60); NT Pro B Type Natriuretic Pept 258 pg/mL (0-450); Osmolality Calculated 299 mOsm/kg (285-295); Potassium 4.1 mmol/L (3.5-5.1); Sodium 143 mmol/L (136-145); Total Bilirubin 0.3 mg/dL (0.15-1.2); Total Protein 5.7 g/dL (6.6-8.7)
[2022-08-26 22:09] LABS: Troponin 5 2HR 18.31 ng/L (0-15)
[2022-08-26 22:10] LABS: Troponin 5 2HR Delta 1.31 ABS# (0-10)
--- NOTE | 2022-08-26 22:23 | ECG_ITS ---
[facility] Test Date: 2022-08-26 Pat Name: Alessandro Jensen Department: Room: Gender: Male Computerized Machine Fabric Cutter: : 1940 Requested By: Reilly Pérez Order Number: [id number] Jurado MD: Dusty Rdz M.D. Measurements Intervals [place] Rate: 56 P: 109 TX: 162 QRS: 19 QRSD: 82 T: 12 QT: 374 QTc: 363 Interpretive Statements SINUS BRADYCARDIA MODERATE ST DEPRESSION [0.05+ mV ST DEPRESSION] Compared to ECG 08/26/2022 20:31:46 ST (T wave) deviation now present Electronically Signed On 08-27-2022 7:59:55 CDT by Dusty Rdz M.D. [id number]
[2022-08-26 23:09] LABS: Add Urine Microscopic? YES; Bilirubin Urine Neg (Negative); Blood Urine Neg (Negative); Glucose Urine UA Norm (Normal); Ketones Urine Negative (Negative); Leukocyte Esterase Urine 2+ (Negative); Nitrate Urine Negative (Negative); Protein Urine Neg (Negative); Specific Gravity, Urine 1.015 (1.005-1.030); Urine Appearance Cloudy (CLEAR); Urine Color Yellow (Yellow); Urobilinogen Urine Neg (Negative); pH Urine 6.5 (5-7)
[2022-08-26 23:10] LABS: Add Urine Culture? Yes; Bacteria Urine 3+ /hpf; Mucus Urine 2+ /hpf; Triple Phosphate Crystal Urine 0-4 /hpf; WBC Urine 15-25 /hpf (0-5)
--- NOTE | 2022-08-27 07:34 | DCPLANNER ---
Addendum entered by Anastasia Thomason 10/01/22 10:43: Patient did not attend appointment Addendum entered by Anastasia Thomason 08/27/22 11:11: Patient has a follow up appointment scheduled for September at 3:[address] Mejia at [facility]. Original Note: Case manger had message to schedule a follow up appointment for patient with cardiology. college or university business manager sent patients information to the front office staff at [facility]. Patients information will be printed and reviewed. Clinic will call patient with appointment information.
== END 2022-08-26 23:20 | disposition home or self-care (01) ==
PROVIDERS: Emergency Provider Emergency Medicine; PCP Family Medicine
DX: R07.89 Other chest pain (principal); R00.1 Bradycardia, unspecified; R74.8 Abnormal levels of other serum enzymes
CPT/HCPCS: 71045; 80053; 81001; 83690; 83880; 84484; 85025; 87077; 87086; 87186; 93005; 99285

== ENCOUNTER 2022-09-10 07:36 | Outpatient (CLI) | payer MEDICARE, MEDICAID, SELFPAY ==
--- NOTE | 2022-09-10 | ECG_ITS ---
[facility] Test Date: 2022-09-10 Pat Name: Alessandro Jensen Department: Room: Gender: Male Plant Physiologist: Kimberly Babcock : 1940 Requested By: Kris Gonzalez Order Number: [id number] Rhiannon MD: Daphnie Godinez M.D. Interpretive Statements NAME OF STUDY: LEXISCAN SESTAMIBI STRESS TEST INDICATION: Chest Pain PROCEDURE: At the baseline, the blood pressure was 118/64 mmHg with a heart rate of 52 bpm. The electrocardiogram showed sinus bradycardia, normal axis. Possible old septal infarct. Nonspecific T wave abnormality. The Lexiscan was infused over a period of 20 seconds. A total of 0.4 milligrams of Lexiscan was infused. The stress phase was continued for a total of 5 minutes. Heart rate at the end of the stress phase was 61 bpm with a blood pressure 100/57 mmHg. The EKG at the peak infusion revealed significant ST-T wave changes. Sestamibi was injected 20 seconds after the Lexiscan infusion. Blood pressure at the end of the recovery phase was 99/54 mm Hg with a heart rate of 65 beats per minute. CONCLUSION: 1. No significant EKG changes with the LexiScan infusion. 2. No LexiScan induced chest pain or cardiac arrhythmia. 3. Normal blood pressure and heart rate response. 4. Sestamibi/sestamibi perfusion scan pending; see separate report. Electronically Signed On 09-12-2022 11:34:22 CDT by Daphnie Godinez M.D. [email or web address] [facility] Statescle[facility] [email or web address]/[id number]
[2022-09-10 07:51] VITALS: BMI 22.4
--- NOTE | 2022-09-10 07:56 | NMCV_ITS ---
NM asim perf SPECT r/s* [id number] Alessandro Jensen Age: 82 Gender: M : 1940 Exam Date: 09/10/2022 07:56 Ordering Phys: Kris Watson MD Technologist: IDALMIS Kang Exam Location: [facility] Indications: CHEST PAIN STRESS TEST Please see separate stress test report in [employer] for full findings IMAGE PROTOCOL Rest/Stress 1 Lexiscan Day Radiopharmaceutical Dose (mCi) Administration Site Administered by Rest: Tc-99m 10.4 IV Celestine Hutchins, PHARMACY SERVICES REPRESENTATIVE Sestamibi Stress:Tc-99m 32.4 IV Celestine Hutchins, PHARMACY SERVICES REPRESENTATIVE Sestamibi Rest: 10-Sep-2022 60 Discovery 630 Stress: 10-Sep-2022 30 Discovery 630 0.4mg Lexiscan. Supine position only as patient was unable to lay prone. SPECT RESULTS Technical Quality: Excellent Raw Data Analysis: Normal Image Corrections: No attenuation or motion correction applied Summed Stress Score: 1 Summed Rest Score: 0 Summed Difference Score: 1 PERFUSION FINDINGS SPECT images demonstrate homogeneous tracer distribution throughout the myocardium. FUNCTIONAL RESULTS (calculated via Gated SPECT) Stress Image LV EF (%): 80 Stress EDV (mL):83 TID: 0.88 Stress ESV (mL):17 FUNCTIONAL FINDINGS: The left ventricle is normal in size. Transient Ischemia Dilatation of 0.88. The left ventricular ejection fraction is normal with a value of 80%. There is hyperdynamic left ventricular global systolic function. There is hyperdynamic left ventricular wall thickening. IMPRESSIONS 1. Myocardial perfusion imaging is normal. 2. Overall left ventricular systolic function is normal without regional wall motion abnormalities, LVEF=80%. 3. No EKG changes with Lexiscan infusion. 4. Scan indicates low risk for cardiac events. Daphnie Godinez MD (Electronically Signed) Final Date: 12 September 2022 11:35 S
[2022-09-10] MEDS: regadenoson 0.4 Mg/5 ml Syringe IVP (09:52)
[2022-09-10 10:02] VITALS: BP 99/54; PULSE 64
== END 2022-09-10 07:37 | disposition home or self-care (01) ==
PROVIDERS: PCP Family Medicine; Visit Provider Family Medicine
DX: R07.9 Chest pain, unspecified (principal)
CPT/HCPCS: 36415; 78452; 93017; 96374; A9500; J2785

== ENCOUNTER 2022-11-22 21:03 | Emergency (ER) | payer MEDICARE, MEDICAID, SELFPAY ==
[2022-11-22 21:04] VITALS: BP 123/54; PULSE 60; RESP 16; TEMP 36.6; O2SAT 97; BMI 19.8
--- NOTE | 2022-11-22 21:18 | ED_ITS ---
HPI - Abdominal Pain General: Chief Complaint: Abdominal Pain Stated Complaint: RLQ pain Time Seen by Provider: 11/22/22 21:06 Source: patient and EMS Mode of arrival: EMS Limitations: no limitations History of Present Illness: Patient is 82-year-old male with a past medical history of a TBI who presents to the emergency room with right lower quadrant abdominal pain brought in by EMS. Patient reports pain for the past 2 days. Reports he is also not had a bowel movement since 2 days ago. Denies any fever, nausea, and chest pain. Reports vomiting 2 days ago but unable to state description of emesis. Reports that he is able to eat and drink properly. Denies any alleviating or aggravating fac tors. No other complaints at this time. MD elicited complaint: abdominal pain Associated Symptoms: Denies chills, fever(s), nausea and vomiting Review of Systems Const: Denies: fever(s) or chills Eyes: Denies: change in vision ENMT: Denies: throat pain or mouth pain Card: Denies: chest pain or palpitations Resp: Denies: dyspnea or productive cough GI: Reports: abdominal pain; Denies: nausea or vomiting : Denies: flank pain or difficulty urinating Musc: Denies: neck pain or back pain Skin/Breast: Denies: rash Neuro: Denies: headache(s) PFSH ED PFSH: Medical History Bladder cancer Bladder mass Mass of right testicle Memory impairment No pertinent family history Organic affective disorder Traumatic brain injury Urinary incontinence Family History Father Liver disease Mother Cancer Social History Smoking and tobacco status: former smoker Alcohol intake: never Substance/Drug Use: never Marital status: Single Current occupational status: disabled Physical Exam Const: COMMON NORMALS: no acute distress, patient oriented x3, healthy appearing and alert ORIENTATION/CONSCIOUSNESS: Yes awake HENMT: COMMON NORMALS: normocephalic HEAD & SCALP: normocephalic Eye: COMMON NORMALS: EOMs intact bilaterally Neck/C-Spine: COMMON NORMALS: full ROM and no lymphadenopathy Lymph: LYMPHATIC: no lymphadenopathy noted Chest: CHEST: Yes Symmetrical chest wall rise Resp: COMMON NORMALS: normal respiratory effort and clear to auscultation bilaterally EFFORT & INSPECTION: Yes able to speak in complete sentences AUSCULTATION: clear to auscultation bilaterally Cardio: COMMON NORMALS: S1 normal heart sound present HEART SOUNDS: S1 normal heart sound present GI: COMMON NORMALS: Soft to palpation INSPECTION: Yes normal to inspection AUSCULTATION: Yes normoactive bowel sounds PALPATION: Yes Soft to palpation and Yes Tenderness to palpation present (GI) : COMMON NORMALS: Yes no CVA tenderness BLADDER/KIDNEY EXAM: Yes no CVA tenderness Back/Pelvis: COMMON NORMALS: no CVA tenderness Extremity: COMMON NORMALS: normal to inspection Neuro: COMMON NORMALS: patient oriented x3 SENSORIUM/ORIENTATION: Yes alert Course Vital Signs: Vital signs: Vital Signs Temperature 97.9 F 11/22/22 21:04 Pulse Rate 55 L 11/22/22 23:33 Respiratory Rate 16 11/22/22 23:33 Blood Pressure 135/72 11/22/22 23:33 Pulse Oximetry 100 11/22/22 23:33 Oxygen Delivery Me thod Room Air 11/22/22 23:33 MDM - Abdominal Pain Medical Decision Making Patient presents for abdominal pain he does have a large inguinal hernia its not incarcerated he is well-appearing here his pains improved blood counts normal we will get him follow-up with surgery he is stable for discharge Medical Records I reviewed the patient's medical records. Lab Data I reviewed the patient's lab results. 11/22/22 21:27 11/22/22 21:27 Labs/Radiology: Radiology Impressions Abdomen/Pelvis CT 11/22/22 21:18 IMPRESSION: 1. There is a 4.3 cm in diameter right inguinal hernia extending into the right scrotum and containing several loops of the distal ileum. There is no CT evidence of bowel incarceration, bowel obstruction, or ileus. Surgery consult is recommended. 2. The bladder wall is thickened to 7 mm, which can be secondary to nondistention, cystitis, or bladder cancer. COMMENTS: Consistent with the [employer]'s Incidental Findings Committee white paper (J Am Violeta Radiol 2018): Any incidental renal lesion less than 1 cm or classified as too small to characterize, or any incidental cystic renal lesion characterized as simple-appearing, is likely benign. No follow-up imaging is recommended for these lesions per consensus recommendations based on imaging criteria. Laboratory Results WBC 6.10 10^3/uL (3.29-11.43) 11/22/22: RBC 4.34 10^6/uL (3.85-5.65) 11/22/22: Hgb 13.60 g/dL (11.27-16.99) 11/22/22: Hct 40.7 % (37-53) 11/22/22: MCV 93.8 fl (82-101) 11/22/22: MCH 31.3 pg (27-33) 11/22/22: MCHC 33.4 g/dL (30-55) 11/22/22: RDW 13.5 % (12.1-15.1) 11/22/22: Plt Count 211 10^3/cmm (157-399) 11/22/22: MPV 9.1 fL (7.4-10.4) 11/22/22: Neut % (Auto) 77.6 % 11/22/22: Lymph % (Auto) 11.1 % 11/22/22: Whiteside % (Auto) 11.1 % 11/22/22: Eos % (Auto) 0.0 % 11/22/22: Baso % (Auto) 0.0 % 11/22/22: Neut # (Auto) 4.73 10^3/uL (1.8-7.7) 11/22/22: Lymph # (Auto) 0.7 10^3/uL (0.8-4.8) L 11/22/22: Whiteside # (Auto) 0.7 10^3/uL (0.2-0.9) 11/22/22: Eos # (Auto) 0.0 10^3/uL (0.0-0.8) 11/22/22: Baso # (Auto) 0.0 10^3/uL (0.0-0.1) 11/22/22: Nucleated RBC % (auto) 0 % 11/22/22: Nucleated RBCs # 0.0 /100WBC 11/22/22: Sodium 145 mmol/L (136-145) 11/22/22 21: Potassium 4.2 mmol/L (3.5-5.1) 11/22/22: Chloride 111 mmol/L (98-107) H 11/22/22 21: Carbon Dioxide 26 mmol/L (22-29) 11/22/22: Anion Gap 12.2 (5-19) 11/22/22: BUN 25 mg/dL (8-23) H 11/22/22: Creatinine 1.2 mg/dL (0.7-1.2) 11/22/22: GFR Calculation Not Reportable 11/22/22: Glucose 122 mg/dL (65-115) H 11/22/22: Calculated Osmolality 306 mOsm/kg (285-295) H 11/22/22: Calcium 9.1 mg/dL (8.5-10.5) 11/22/22: Total Bilirubin 0.3 mg/dL (0.15-1.2) 11/22/22: AST 18 U/L (0-40) 11/22/22: ALT 15 U/L (0-41) 11/22/22: Alkaline Phosphatase 62 U/L (40-130) 11/22/22: Total Protein 6.5 g/dL (6.6-8.7) L 11/22/22: Albumin 4.3 g/dL (3.5-5.2) 11/22/22: Globulin 2.2 g/dL (1.3-4.6) 11/22/22 21: Lipase 53 U/L (13-60) 11/22/22 21:27 Urine Color Yellow (Yellow) 11/22/22 22:05 Urine Appearance Sl cloudy (CLEAR) A 11/22/22 22: Urine pH 6.5 (5-7) 11/22/22 22:05 Ur Specific [place] 1.015 (1.005-1.030) 11/22/22 22:05 Urine Protein Neg (Negative) 11/22/22 22: Urine Glucose (UA) Norm (Normal) 11/22/22 22:05 Urine Ketones Negative (Negative) 11/22/22 22:05 Urine Blood Neg (Negative) 11/22/22 22:05 Urine Nitrate Negative (Negative) 11/22/22 22:05 Urine Bilirubin Neg (Negative) 11/22/22 22:05 Urine Urobilinogen 1 mg/dL (Negative) H 11/22/22 22:05 Ur Leukocyte Esterase 2+ (Negative) H 11/22/22 22:05 Urine RBC 10-15 /hpf (0-2) H 11/22/22 22:05 Urine WBC 15-25 /hpf (0-5) H 11/22/22 22:05 Ur Squamous Epith Cells None /hpf (0-5) 11/22/22 22:05 Ur Transition Epith Cell 5-10 /hpf 11/22/22 22:05 Amorphous Sediment Not Reportable 11/22/22 22:05 Urine Bacteria 1+ /hpf (NONE) H 11/22/22 22:05 All radiology interpretation(s) finalized by discharge Discharge Plan Discharge Patient Disposition: Home Clinical Impression: Hernia, inguinal, right Condition: Stable Prescriptions: No Action ciprofloxacin HCl 500 mg tablet 500 mg PO BID Qty: 20 1RF multivitamin Tablet 1 tab PO DAILY@07 donepezil 10 mg Tablet 10 mg PO BEDTIME@20 acetaminophen [Tylenol Extra Strength] 500 mg Tablet 1,000 mg PO .Q4-6H PRN (Reason: Pain) zonisamide 100 mg Capsule 400 mg PO DAILY@07 magnesium hydroxide [Milk of Magnesia] 400 mg/5 mL Suspension 30 ml PO .Q4-6H PRN (Reason: Constipation) docusate sodium [Colace] 100 mg Capsule 200 mg PO BEDTIME@20 ammonium lactate 12 % Cream 1 applic TOPICAL BID@07,20 Rx Instructions: on bilat legs memantine [Namenda] 10 mg Tablet 10 mg PO BID@07,20 dextromethorphan-guaifenesin [Guaifenesin-DM] 10-100 mg/5 mL Liquid 10 ml PO Q6H PRN (Reason: Cough) cholecalciferol (vitamin D3) [Vitamin D3] 50 mcg (2,000 unit) Capsule 50 mcg PO DAILY@07 fluoride (sodium) [Denta 5000 Plus] 1.1 % Cream See Rx Instructions .ROUTE .COMPLEX Rx Instructions: brush on teeth bid *do not eat or drink for 30 mins after* ondansetron 4 mg tablet,disintegrating 4 mg PO Q6H PRN (Reason: nausea and vomiting) Qty: 14 0RF Discharge Orders: Discharge ED (Routine); Ordered 11/22/22 Ordered By: Irene Romero Referrals: Kris Watson MD [Primary Care Provider] - Discharge Diet: Advance as tolerated Discharge Activity: Resume usual activity Patient Instructions: Inguinal Hernia (ED) Coding Level of Care Code ED Used [employer] 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
--- NOTE | 2022-11-22 21:18 | CTR_ITS ---
PROCEDURE INFORMATION: Exam: CT Abdomen And Pelvis With Contrast Exam date and time: 11/22/2022 10:15 PM Age: 82 years old Clinical indication: Abdominal pain; Localized; Right lower quadrant (rlq); Patient HX: Rlq pain per PT, unsure if he has had surgeries, HX of bladder cancer per chart; Additional info: Abd pain TECHNIQUE: Imaging protocol: Computed tomography of the abdomen and pelvis with contrast. Radiation optimization: All CT scans at this facility use at least one of these dose optimization techniques: automated exposure control; mA and/or kV adjustment per patient size (includes targeted exams where dose is matched to clinical indication); or iterative reconstruction. Contrast material: OMNI 350; Contrast volume: 100 ml; Contrast route: INTRAVENOUS (IV); REPORTING DATA: Count of CT and Cardiac NM exams in prior 12 months: This patient has received [address] and 0 known cardiac nuclear medicine studies in the 12 months prior to the current study. COMPARISON: CT abdomen pelvis w con* [id number] 09/02/2021 3:10 PM RADIATION DOSE METRICS: Total DLP (mGy-cm): 578.16 FINDINGS: Liver: There is a simple benign-appearing 1.2 cm cyst in the left lobe of the liver, which does not need follow-up. Gallbladder and bile ducts: There are cholecystectomy clips. Pancreas: Normal. No ductal dilation. Spleen: Normal. No splenomegaly. Adrenal glands: Normal. No mass. Kidneys and ureters: There is a 7 mm simple benign cyst in the midportion of the left kidney, which does not need follow-up. The right kidney is unremarkable. Stomach and bowel: See Soft tissues finding. Appendix: No evidence of appendicitis. Intraperitoneal space: Unremarkable. No free air. No significant fluid collection. Vasculature: Unremarkable. No abdominal aortic aneurysm. Lymph nodes: Unremarkable. No enlarged lymph nodes. Urinary bladder: The bladder wall is thickened to 7 mm, which can be secondary to nondistention, cystitis, or bladder cancer. Reproductive: The prostate is enlarged measuring 4.8 cm x 3.8 cm. Bones/joints: There is a stable old compression fracture of L1 vertebral body, resulting in 35% loss of height and no retropulsion into the spinal canal. Soft tissues: There is a 4.3 cm in diameter right inguinal hernia extending into the right scrotum and containing several loops of the distal ileum. There is no CT evidence of bowel incarceration, bowel obstruction, or ileus. Surgery consult is recommended. CT/CT abdomen pelvis w con* [id number] IMPRESSION: 1. There is a 4.3 cm in diameter right inguinal hernia extending into the right scrotum and containing several loops of the distal ileum. There is no CT evidence of bowel incarceration, bowel obstruction, or ileus. Surgery consult is recommended. 2. The bladder wall is thickened to 7 mm, which can be secondary to nondistention, cystitis, or bladder cancer. COMMENTS: Consistent with the [employer]'s Incidental Findings Committee white paper (J Am Violeta Radiol 2018): Any incidental renal lesion less than 1 cm or classified as too small to characterize, or any incidental cystic renal lesion characterized as simple-appearing, is likely benign. No follow-up imaging is recommended for these lesions per consensus recommendations based on imaging criteria.
[2022-11-22 21:33] LABS: Hematocrit 40.7 % (37-53); Lymphocytes # 0.7 10^3/uL (0.8-4.8); Lymphocytes % 11.1 %; Mean Corpuscular HGB Conc 33.4 g/dL (30-55); Mean Corpuscular Hemoglobin 31.3 pg (27-33); Mean Corpuscular Volume 93.8 fl (82-101); Mean Platelet Volume 9.1 fL (7.4-10.4); Monocytes # 0.7 10^3/uL (0.2-0.9); Monocytes % 11.1 %; Neutrophils # 4.73 10^3/uL (1.8-7.7); Neutrophils % 77.6 %; Nucleated Red Blood Cells % 0 %; Platelet Count 211 10^3/cmm (157-399); Red Blood Count 4.34 10^6/uL (3.85-5.65); Red Cell Distribution Width 13.5 % (12.1-15.1)
[2022-11-22 21:50] LABS: Alanine Aminotransferase 15 U/L (0-41); Albumin Level 4.3 g/dL (3.5-5.2); Alkaline Phosphatase 62 U/L (40-130); Anion Gap 12.2 (5-19); Aspartate Amino Transferase 18 U/L (0-40); Blood Urea Nitrogen 25 mg/dL (8-23); Calcium 9.1 mg/dL (8.5-10.5); Carbon Dioxide 26 mmol/L (22-29); Chloride 111 mmol/L (98-107); Globulin 2.2 g/dL (1.3-4.6); Glucose 122 mg/dL (65-115); Lipase 53 U/L (13-60); Osmolality Calculated 306 mOsm/kg (285-295); Potassium 4.2 mmol/L (3.5-5.1); Sodium 145 mmol/L (136-145); Total Bilirubin 0.3 mg/dL (0.15-1.2); Total Protein 6.5 g/dL (6.6-8.7)
[2022-11-22 21:53] VITALS: BP 100/73; PULSE 53; RESP 20; O2SAT 98
[2022-11-22 22:22] LABS: Add Urine Microscopic? YES; Bilirubin Urine Neg (Negative); Blood Urine Neg (Negative); Glucose Urine UA Norm (Normal); Ketones Urine Negative (Negative); Leukocyte Esterase Urine 2+ (Negative); Nitrate Urine Negative (Negative); Protein Urine Neg (Negative); Specific Gravity, Urine 1.015 (1.005-1.030); Urine Color Yellow (Yellow); Urobilinogen Urine 1 mg/dL (Negative); pH Urine 6.5 (5-7)
[2022-11-22 22:24] LABS: Bacteria Urine 1+ /hpf; WBC Urine 15-25 /hpf (0-5)
[2022-11-22 22:25] LABS: Add Urine Culture? Yes
--- NOTE | 2022-11-22 22:25 | PC.NURSE ---
PT UPDATE WAS GIVEN TO [facility].
[2022-11-22] MEDS: iohexol 350 mg/mL 500 mL Btl (per mL) IV (22:28)
[2022-11-22 22:31] VITALS: BP 138/64; PULSE 63; RESP 20; O2SAT 99
[2022-11-22 23:13] VITALS: BP 133/66; PULSE 70; RESP 20; O2SAT 99
[2022-11-22 23:33] VITALS: BP 135/72; PULSE 55; RESP 16; O2SAT 100
--- NOTE | 2022-11-23 09:24 | PC.SOCIAL ---
General Surgery Referral Referral sent to ortho at this time. Clinic to contact patient with appt date/time.
== END 2022-11-23 00:05 | disposition home or self-care (01) ==
PROVIDERS: Emergency Provider Emergency Medicine; PCP Family Medicine
DX: K40.90 Unilateral inguinal hernia, without obstruction or gangrene, not specified as recurrent (principal); Z85.51 Personal history of malignant neoplasm of bladder; Z87.891 Personal history of nicotine dependence
CPT/HCPCS: 74177; 80053; 81001; 83690; 85025; 87077; 87086; 87186; 99285; Q9967

== ENCOUNTER → 2022-11-25 15:49 | Outpatient (BNVA) | payer MEDICARE, MEDICAID, SELFPAY | PROVIDERS: PCP Family Medicine; Referring Provider Family Medicine; Visit Provider Dermatology | DX: L72.0 Epidermal cyst (principal); L57.0 Actinic keratosis; D22.39 Melanocytic nevi of other parts of face; L90.5 Scar conditions and fibrosis of skin | CPT/HCPCS: 10060; 17000; 99203 ==

== ENCOUNTER → 2022-11-30 09:19 | Outpatient (BNVA) | payer MEDICARE, MEDICAID, SELFPAY | PROVIDERS: PCP Family Medicine; Visit Provider Surgery | DX: K40.90 Unilateral inguinal hernia, without obstruction or gangrene, not specified as recurrent (principal) | CPT/HCPCS: 99203 ==

== ENCOUNTER 2022-12-20 06:49 | Day surgery (SDC) | payer MEDICARE, MEDICAID, SELFPAY ==
--- NOTE | 2022-12-17 11:42 | PC.NURSE ---
[facility] manager gave information - nurse not available to talk to
[2022-12-20] VITALS (14 sets, daily range): BP systolic 93–145; BP diastolic 59–76; PULSE 53–120; RESP 8–16; TEMP 36.3–36.4; O2SAT 92–97; BMI 22.4
--- NOTE | 2022-12-20 06:59 | W.PM.OPSUD ---
Surgery/Procedure H&P Update DATE OF PROCEDURE: December 20, 2022 DATE H&P PERFORMED: 11/30/22 H&P UPDATE INFORMATION: I have reviewed H&P completed within last 30 days, I have examined patient prior to procedure and No changes to prior documentation PLANNED PROCEDURE: Operation Date: 12/20/22 08:15 Proposed Procedures p 01413 lap right inguinal hernia repair with mesh, K40.90(Right) - Andrew Damico DO
[2022-12-20] MEDS: sodium chloride 0.9% 1,000 ML 30 ML IV (07:27)
--- NOTE | 2022-12-20 07:31 | ANES.PREANE2 ---
Pre-Anesthetic Assessment Height/Weight: Height 1.85 m Weight 77.111 kg Temp Pulse Resp BP Pulse Ox O2 Del Method 97.6 F 53 L 16 125/62 97 Room Air 12/20/22 07:08 12/20/22 07:08 12/20/22 07:08 12/20/22 07:08 12/20/22 07:08 12/20/22 07:08 Operation Date: 12/20/22 08:15 Proposed Procedures p 43413 lap right inguinal hernia repair with mesh, K40.90(Right) - Andrew Damico DO Familial anesthetic complications: none Was Beta Flori taken within 24 hours: N/A Was Clonidine taken within 24 hours: N/A Last intake: Intake Last Liquid Date 12/19/22 Last Liquid Time 19:00 Last Solid Date 12/19/22 Last Solid Time :00 Social No alcohol and No tobacco former smoker Exam alert, oriented x 3, clear to auscultation bilaterally and regular rate & rhythm Airway Mallampati: Class I Dentition: full hx bladder cancer Anesthetic Plan ASA status: 2 Anesthesia: General Risk of > 500 ml blood loss (7ml/kg in children): No Medications/Allergies Home Medications Medication Instructions Recorded Confirmed Last Taken Type acetaminophen 500 mg tablet 1,000 mg PO .Q4-6H PRN Pain 08/09/19 12/17/22 12/09/22 History (Tylenol Extra Strength) ammonium lactate 12 % topical cream 1 applic topical BID@08/09/19 12/17/22 12/16/22 History docusate sodium 100 mg capsule 200 mg PO BEDTIME@08/09/19 12/20/22 12/19/22 History (Colace) donepezil 10 mg tablet 10 mg PO BEDTIME@08/09/19 12/20/22 12/19/22 History magnesium hydroxide 400 mg/5 mL 30 ml PO .Q4-6H PRN Constipation 08/09/19 12/17/22 12/17/22 History oral suspension (Milk of Magnesia) memantine 10 mg tablet (Namenda) 10 mg PO BID@08/09/19 12/20/22 12/20/22 History multivitamin 1 tab PO DAILY@08/09/19 12/20/22 12/19/22 History zonisamide 100 mg capsule 400 mg PO DAILY@08/09/19 12/20/22 12/20/22 History cholecalciferol (vitamin D3) 50 50 mcg PO DAILY@09/02/21 12/20/22 12/19/22 History mcg (2,000 unit) capsule (Vitamin D3) dextromethorphan-guaifenesin 10 10 ml PO PRN PRN Cough 09/02/21 12/17/22 11/14/22 History mg-100 mg/5 mL oral liquid fluoride (sodium) 1.1 % dental See Rx Instructions .Route .COMPLEX 09/02/21 12/20/22 12/19/22 History cream (Denta 5000 Plus) ondansetron 4 mg disintegrating 4 mg PO Q6H PRN nausea and 07/18/22 11/30/22 Unknown Rx tablet vomiting #14 tabs Allergies Allergy/AdvReac Type Severity Reaction Status Date / Time Penicillins Allergy Unknown Verified 11/30/22 09:22 Sulfa (Sulfonamide Allergy Unknown Verified 11/30/22 09:22 Antibiotics) Current Medications Generic Name Dose Route Start Last Admin Trade Name Freq PRN Reason Stop Dose Admin Sodium Chloride 1,000 mls @ 30 mls/hr 12/20/22 07:00 12/20/22 07:27 Sodium Chloride 0.9% IV 12/21/22 06:59 30 mls/hr .Q24H MANI Administration PFSH Anesthesia Medical History Bladder cancer Bladder mass Mass of right testicle Memory impairment No pertinent family history Organic affective disorder Traumatic brain injury Urinary incontinence Family History Father Liver disease Mother Cancer Social History Smoking and tobacco/nicotine status: former use of tobacco/nicotine Alcohol intake: never Substance/Drug Use: never Marital status: Single Current occupational status: disabled Data Anesthesia Cardiac Studies: Echocardiogram Ultrasound 08/28/19 Sestamibi Stress Test (Cardiology) 09/10/22 Holter Monitor 08/17/19
[2022-12-20] MEDS: vancomycin 1,500 MG/300 ML PIGGYBACK 200 MG IV (07:40)
[2022-12-20] MEDS: lidocaine-epi 2% 20 mL INJ INJECTION (07:58)
[2022-12-20] MEDS: tranexamic acid 1,000 mg/10mL SDV 1000 MG IV (08:31)
--- NOTE | 2022-12-20 08:40 | PM.OP ---
Operative Report Date of procedure: December 20, 2022 Pre-op diagnosis: Right inguinal hernia Post-op diagnosis: Indirect right inguinal hernia Procedure done: Laparoscopic repair of right inguinal hernia with mesh Implants: Extra-large 3D max Bard mesh Specimens removed/disposition: None Surgeon: Andrew Damico DO Anesthesia: General Estimated blood loss (mL): 5 Complications: None apparent Brief History: This a very pleasant 82-year-old gentleman with a large right inguinal hernia. Laparoscopic repair with mesh is indicated. The risk and benefits were explained and documented. Procedure: Patient was wheeled into the operative room and placed on the OR table in a supine position. Abdomen was inspected prepped and draped in usual sterile fashion. Time-out was performed and all present were in agreement. A 15 blade scalpel was used to make 1.2 centimeter incision infraumbilically. Combination of sharp and blunt dissection was performed down to the anterior rectus sheath which was opened sharply. The dissecting balloon was then inserted into the space of Retzius and blown up. We put the camera into the port and identified that we were in the correct space. I then placed 2 5 millimeter trocars suprapubically in the midline. I then used endokitners to bluntly dissect in the space of Retzius out laterally. An indirect inguinal hernia was identified on the right. Blunt dissection was performed to dissect down the hernia sac until the vas deferens dove medially. An extra-large right inguinal mesh was then placed into the space of Retzius. The mesh was unrolled and tacked once medially at the pubic bone. The mesh laid out nicely over the spermatic cord. Photos were taken of the mesh laid out and the hernia sac laid underneath the mesh. I watched the hernia sac remained in place as insufflation was removed. Incisions were closed with 4-0 Monocryl in a subcuticular interrupted fashion. Skin glue was applied. Patient tolerated the procedure well.
--- NOTE | 2022-12-20 09:40 | ECG_ITS ---
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 Measurements Intervals Creole Rate: 101 P: 95 MN: 165 QRS: 30 QRSD: 142 T: 15 QT: 374 QTc: 485 Interpretive Statements SINUS TACHYCARDIA RIGHT BUNDLE BRANCH BLOCK [120+ ms QRS DURATION, UPRIGHT V1, 40+ ms S IN I/aVL/V4/V5/V6] Compared to ECG 08/26/2022 22:45:26 Right bundle-branch block now present Sinus bradycardia no longer present ST (T wave) deviation no longer present Electronically Signed On 12-20-2022 11:09:10 CDT by Dusty Rdz M.D. [email or web address]
--- NOTE | 2022-12-20 09:40 | PC.NURSE ---
0938 - DR CHAMBERS NOTIFIED PER THIS NURSE OF HEART RATE CONTINUING TO RANGE FROM 108-110 - EKG ORDERED STAT - RT YENI AT SIDE TO DO EKG
--- NOTE | 2022-12-20 09:53 | PC.NURSE ---
0948 - DR CHAMBERS NOTIFIED OF EKG - REPORT GIVEN TO [facility] TO NOTIFY DR CHAMBERS BEFORE SENDING PT HOME
--- NOTE | 2022-12-20 10:40 | ANE.PACU2 ---
Inpatient post-anesthesia follow up: Airway intact: Yes Vital signs: Temperature 97.5 F Pulse Rate 105 Respiratory Rate 15 Blood Pressure 119/68 Pulse Oximetry 96 Oxygen Delivery Me thod Room Air Oxygen Flow Rate Fraction of Inspir ed Oxygen Hydration adequate: Yes Nausea and vomiting: No Pain level: 1 Mental status: Baseline
== END 2022-12-20 10:40 | disposition home or self-care (01) ==
PROVIDERS: PCP Family Medicine; Visit Provider Surgery
PROC: (CPT 49650; principal; 2022-12-20 08:15)
DX: K40.90 Unilateral inguinal hernia, without obstruction or gangrene, not specified as recurrent (principal); Z87.891 Personal history of nicotine dependence; Z85.51 Personal history of malignant neoplasm of bladder
CPT/HCPCS: 49650; 51702; 93005; C1781; J1100; J1170; J1200; J2405; J2704; J2710; J3010; J3370; J3490; J7030

== ENCOUNTER → 2023-01-04 08:42 | Outpatient (BNVA) | payer MEDICARE, MEDICAID, SELFPAY | PROVIDERS: PCP Family Medicine; Visit Provider Surgery | DX: Z98.890 Other specified postprocedural states (principal); Z87.19 Personal history of other diseases of the digestive system | CPT/HCPCS: 99024 ==

== ENCOUNTER 2023-05-25 09:16 | Outpatient (CLI) | payer MEDICARE, MEDICAID, SELFPAY ==
--- NOTE | 2023-05-25 09:22 | CT_ITS ---
WS: [id number] CT urography (abdomen/pelvis). HISTORY: COMPLICATED UTI/BLADDER CANCER TECHNIQUE: Unenhanced 5 mm axial imaging first performed through the abdomen. Post contrast imaging t hrough the abdomen and pelvis. Oral contrast has not been provided. Sagittal and coronal reformats a re submitted. All CT scans at [facility] use at least one of these dose optimization techniqu es: automated exposure control; mA and/or kV adjustment per patient size (includes targeted exams whe re dose is matched to clinical indication); or iterative reconstruction. CONTRAST: Omnipaque 350; 95 mL IV. DLP: 2118.76 mGy.cm COMPARISON: 11/22/2022 RIGHT kidney: 10.4 cm in length. There is a single nonobstructing 3 mm calcification in the lower ignacio e. Very mild cortical thinning. No solid mass. No cyst or obstruction. Intermittent visualization of the ureter. The distal ureter is better opacified with contrast. Proximal ureter is not dilated but l imited opacification. No ureteral obstruction or uroepithelial lesions. LEFT kidney: 9.8 cm in length. Mild cortical thinning. No renal stone or calcification. 7 mm cyst mid kidney. No solid mass. No uroepithelial neoplasms. LEFT ureter contrast opacified throughout its cou rse to the bladder. The very distal ureter is not opacified but there is no obstruction. Urinary bladder: Mild bladder wall thickening. There is prostate gland enlargement encroaching into t he base of the urinary bladder. Separate from the prostate gland encroachment no definite tumor or ma ss. Chronic emphysematous changes at the lung bases. Heart size is normal. Small hiatal hernia. Hepatic c ysts. Largest is 11 mm in the LEFT lobe. No bile duct dilatation. Prior cholecystectomy. Normal dez l vein. Mildly prominent common bile duct on the basis of the cholecystectomy. No pancreatic mass. No rmal size spleen with granulomata. No adrenal mass. Mild atherosclerosis aorta. No GI tract obstruction. Moderate diffuse constipation. No ascites. No adenopathy. Previously described RIGHT inguinal hernia as been surgically repaired. L1 compression fracture, 20% without retropulsion. No change since 11/22/2022. No osteoblastic or oste olytic bone disease. No expansile bone lesions. IMPRESSION: 1. No renal obstruction or uroepithelial lesions identified. 2. Nonobstructing 3 mm calcification lower pole RIGHT kidney. 3. Prostate gland enlargement encroaching into the base of the urinary bladder. No additional soft t issue mass identified within the bladder. 4. Stable hepatic cyst. 5. Prior cholecystectomy.
[2023-05-25] MEDS: iohexol 350 mg/mL 500 mL Btl (per mL) IV (10:09)
== END 2023-05-25 09:17 | disposition home or self-care (01) ==
LOC: RAD 09:17
PROVIDERS: PCP Family Medicine; Visit Provider Urology
DX: C67.9 Malignant neoplasm of bladder, unspecified (principal); N39.0 Urinary tract infection, site not specified; K76.89 Other specified diseases of liver
CPT/HCPCS: 74178; Q9967

== ENCOUNTER 2023-09-23 19:42 | Emergency (ER) | payer MEDICARE, MEDICAID, SELFPAY ==
[2023-09-23] VITALS (9 sets, daily range): BP systolic 103–127; BP diastolic 49–65; PULSE 39–56; RESP 9–14; TEMP 36.7; O2SAT 12–97
--- NOTE | 2023-09-23 20:02 | CTR_ITS ---
PROCEDURE INFORMATION: Exam: CT Head Without Contrast Exam date and time: 09/23/2023 8:14 PM Age: 83 years old Clinical indication: Altered mental status/memory loss; Prior surgery; Craniotomy/craniectomy; EMS arrival for unresponsiveness and bradycardia. ; TECHNIQUE: Imaging protocol: Computed tomography of the head without contrast. Radiation optimization: All CT scans at this facility use at least one of these dose optimization techniques: automated exposure control; mA and/or kV adjustment per patient size (includes targeted exams where dose is matched to clinical indication); or iterative reconstruction. COMPARISON: CT head wo con* [id number] 09/02/2021 3:07 PM RADIATION DOSE METRICS: Total DLP (mGy-cm): 1187.94 FINDINGS: Brain: Prominent cerebellar atrophy appears similar to the prior study. Mild generalized cerebral atrophy consistent with this patient's age. Bilateral parietal and right frontal craniotomy changes are present. There is postoperative change and encephalomalacia underlying the right parietal and right frontal craniotomy change.Periventricular and subcortical white matter low densities are present which at this age likely represent microvascular ischemic change. No evidence for large acute ischemic infarction. Please note acute ischemia can be occult by head CT. No evidence for acute intracranial hemorrhage. Cerebral ventricles: No ventriculomegaly. Paranasal sinuses: Visualized sinuses are unremarkable. No fluid levels. Mastoid air cells: Visualized mastoid air cells are well aerated. Auditory system: There is a large amount of cerumen in the bilateral external auditory canals. Bones: See Brain finding. Soft tissues: Unremarkable. CT/CT head wo con* [id number] IMPRESSION: There are postoperative and senescent changes in the brain as described above. No evidence for acute intracranial hemorrhage or large acute ischemic infarction.
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
--- NOTE | 2023-09-23 20:30 | ECG_ITS ---
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 Measurements Intervals [place] Rate: 49 P: 129 CA: 202 QRS: 6 QRSD: 134 T: 12 QT: 428 QTc: 388 Interpretive Statements SINUS BRADYCARDIA INTRAVENTRICULAR CONDUCTION DELAY [130+ ms QRS DURATION] Compared to ECG 12/20/2022 09:43:54 Intraventricular conduction delay now present Sinus tachycardia no longer present Right bundle-branch block no longer present Electronically Signed On 09-24-2023 6:59:13 CDT by Dusty Rdz M.D. [id number]
[2023-09-23 20:38] LABS: Hematocrit 35.9 % (37-53); Lymphocytes # 0.7 10^3/uL (0.8-4.8); Mean Corpuscular Volume 94.2 fl (82-101); Monocytes # 0.5 10^3/uL (0.2-0.9); Monocytes % 14.8 %; Neutrophils # 2.25 10^3/uL (1.8-7.7); Neutrophils % 63.9 %; Nucleated Red Blood Cells % 0 %; Platelet Count 187 10^3/cmm (157-399); Red Blood Count 3.81 10^6/uL (3.85-5.65); Red Cell Distribution Width 13.2 % (12.1-15.1); White Blood Count 3.52 10^3/uL (3.29-11.43)
[2023-09-23 21:04] LABS: Lactic Sepsis W/Reflex 0.9 mmol/L (0.5-2.2)
[2023-09-23 21:10] LABS: Alanine Aminotransferase 22 U/L (0-41); Albumin Level 3.9 g/dL (3.5-5.2); Alcohol Level < 10 mg/dL (0-10); Alkaline Phosphatase 50 U/L (40-130); Anion Gap 11.9 (5-19); Aspartate Amino Transferase 25 U/L (0-40); Blood Urea Nitrogen 27 mg/dL (8-23); Carbon Dioxide 26 mmol/L (22-29); Chloride 108 mmol/L (98-107); Creatinine Clr Calc Pharmacy 53.0631; Globulin 2.1 g/dL (1.3-4.6); Glucose 113 mg/dL (65-115); Osmolality Calculated 300 mOsm/kg (285-295); Potassium 3.9 mmol/L (3.5-5.1); Sodium 142 mmol/L (136-145); Thyroid Stimulating Hormone 1.92 uIU/mL (0.27-4.20); Total Bilirubin 0.4 mg/dL (0.15-1.2)
[2023-09-23 23:00] LABS: Charge for UA Resulting for Rev
[2023-09-23 23:03] LABS: Bilirubin Urine Negative (Negative); Blood Urine Negative (Negative); Glucose Urine UA Negative (Normal); Ketones Urine Negative (Negative); Leukocyte Esterase Urine Negative (Negative); Nitrate Urine Negative (Negative); Protein Urine Negative (Negative); Specific Gravity, Urine 1.014 (1.005-1.030); Urine Appearance Clear (CLEAR); Urine Color Yellow (Yellow)
[2023-09-23 23:10] LABS: Amphetamines Screen Urine Negative (Negative); Barbiturates Screen Urine Negative (Negative); Benzodiazepines Screen Urine Negative (Negative); Cocaine Screen Urine Negative (Negative); Opiate Screen Urine Negative (Negative); PCP Screen Urine Negative (Negative); THC Screen Urine Negative (Negative)
[2023-09-24] VITALS: BP 150/75; PULSE 55; RESP 15; O2SAT 96
[2023-09-24 00:30] VITALS: BP 124/62; PULSE 43; RESP 13; O2SAT 97
--- NOTE | 2023-09-24 00:45 | ECG_ITS ---
[facility] Test Date: 2023-09-24 Pat Name: Alsesandro Jensen Department: Room: Gender: Male Manager Photography: : 1940 Requested By: Blair Vogel Order Number: [id number] Jurado MD: Dusty Rdz M.D. Measurements Intervals [place] Rate: 44 P: 93 AR: 186 QRS: 39 QRSD: 142 T: 43 QT: 442 QTc: 378 Interpretive Statements SINUS BRADYCARDIA INTRAVENTRICULAR CONDUCTION DELAY [130+ ms QRS DURATION] Compared to ECG 09/23/2023 20:30:36 No significant changes Electronically Signed On 09-24-2023 6:58:45 CDT by Dusty Rdz M.D. [id number]
[2023-09-24 01:00] VITALS: BP 137/69; PULSE 45; RESP 12; O2SAT 98
== END 2023-09-24 01:05 | disposition home or self-care (01) ==
PROVIDERS: Emergency Provider Student in an Organized Health Care Education/Training Program; PCP Family Medicine
DX: R41.82 Altered mental status, unspecified (principal); R40.4 Transient alteration of awareness; R00.1 Bradycardia, unspecified; Z87.891 Personal history of nicotine dependence; Z85.51 Personal history of malignant neoplasm of bladder
CPT/HCPCS: 70450; 80053; 80306; 80307; 81003; 81015; 83605; 83735; 84443; 85025; 93005; 99284

== ENCOUNTER → 2023-11-28 09:09 | Outpatient (BNVA) | payer MEDICARE, MEDICAID, SELFPAY | PROVIDERS: PCP Family Medicine; Visit Provider Nurse Practitioner Family | DX: D22.39 Melanocytic nevi of other parts of face (principal) | CPT/HCPCS: 17000; 99213 ==

== ENCOUNTER 2024-01-21 21:44 | Emergency (ER) | payer MEDICARE, MEDICAID, SELFPAY ==
[2024-01-21 21:49] VITALS: BP 100/48; PULSE 65; RESP 20; TEMP 36.5; O2SAT 93
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
[2024-01-21 22:51] LABS: Hematocrit 42.4 % (37-53); Lymphocytes # 0.1 10^3/uL (0.8-4.8); Lymphocytes % 3.1 %; Mean Corpuscular HGB Conc 33.5 g/dL (30-55); Mean Corpuscular Hemoglobin 30.7 pg (27-33); Mean Corpuscular Volume 91.8 fl (82-101); Mean Platelet Volume 9.3 fL (7.4-10.4); Monocytes # 0.3 10^3/uL (0.2-0.9); Monocytes % 6.6 %; Neutrophils % 89.9 %; Nucleated Red Blood Cells % 0 %; Platelet Count 191 10^3/cmm (157-399); Red Blood Count 4.62 10^6/uL (3.85-5.65); White Blood Count 4.56 10^3/uL (3.29-11.43)
[2024-01-21 23:07] LABS: Alanine Aminotransferase 12 U/L (0-41); Albumin Level 3.9 g/dL (3.5-5.2); Alkaline Phosphatase 46 U/L (40-130); Aspartate Amino Transferase 23 U/L (0-40); Blood Urea Nitrogen 37 mg/dL (8-23); Calcium 8.6 mg/dL (8.5-10.5); Carbon Dioxide 28 mmol/L (22-29); Chloride 105 mmol/L (98-107); Globulin 2.2 g/dL (1.3-4.6); Glucose 132 mg/dL (65-115); Lactic Sepsis W/Reflex 1.5 mmol/L (0.5-2.2); Osmolality Calculated 305 mOsm/kg (285-295); Sodium 142 mmol/L (136-145); Total Bilirubin 0.5 mg/dL (0.15-1.2); Total Protein 6.1 g/dL (6.6-8.7)
[2024-01-22 00:10] LABS: Bilirubin Urine Negative (Negative); Blood Urine Negative (Negative); Glucose Urine UA Negative (Normal); Ketones Urine Negative (Negative); Leukocyte Esterase Urine Negative (Negative); Nitrate Urine Negative (Negative); Protein Urine Negative (Negative); Urine Appearance Clear (CLEAR); Urine Color Yellow (Yellow)
[2024-01-22 00:12] LABS: Add Urine Microscopic? YES; Bacteria Urine None Seen /hpf; Hyaline Casts Urine 3.71 /lpf; RBC Urine 0-2 /hpf (0-2); Squamous Epithelial Cell Urine 0-5 /hpf (0-5); Universal Test for UA Present (0); WBC Urine 0-5 /hpf (0-5)
[2024-01-22 00:18] LABS: Covid PCR NEGATIVE (Negative); Influenza A NEGATIVE (Negative); Influenza B NEGATIVE (Negative); Respiratory Syncytial Virus Ce NEGATIVE (Negative)
[2024-01-22 00:28] LABS: Add Urine Culture? No; Mucus Urine 1+ /hpf
--- NOTE | 2024-01-22 01:44 | ED_ITS ---
HPI - Fever 2 General: Chief Complaint: Fever Stated Complaint: fever Time Seen by Provider: 01/21/24 21:54 History of Present Illness: 83-year-old gentleman presenting from [facility] half-way environment with a fever. He has no other complaints. He is not having any pain. He states no dysuria. Apparently, he appears to be a poor historian though. Related Data Home Medications Medication Instructions Recorded Confirmed acetaminophen 500 mg tablet 1,000 mg PO .Q4-6H PRN Pain 08/09/19 01/04/23 (Tylenol Extra Strength) ammonium lactate 12 % topical cream 1 applic topical BID@08/09/19 01/04/23 docusate sodium 100 mg capsule 200 mg PO BEDTIME@08/09/19 01/04/23 (Colace) donepezil 10 mg tablet 10 mg PO BEDTIME@08/09/19 01/04/23 magnesium hydroxide 400 mg/5 mL 30 ml PO .Q4-6H PRN Constipation 08/09/19 01/04/23 oral suspension (Milk of Magnesia) memantine 10 mg tablet (Namenda) 10 mg PO BID@08/09/19 01/04/23 multivitamin 1 tab PO DAILY@08/09/19 01/04/23 zonisamide 100 mg capsule 400 mg PO DAILY@08/09/19 01/04/23 cholecalciferol (vitamin D3) 50 50 mcg PO DAILY@09/02/21 01/04/23 mcg (2,000 unit) capsule (Vitamin D3) dextromethorphan-guaifenesin 10 10 ml PO PRN PRN Cough 09/02/21 01/04/23 mg-100 mg/5 mL oral liquid fluoride (sodium) 1.1 % dental See Rx Instructions .Route .COMPLEX 09/02/21 01/04/23 cream (Denta 5000 Plus) Previous Rx's Medication Instructions Recorded ondansetron 4 mg disintegrating 4 mg PO Q6H PRN nausea and 07/18/22 tablet vomiting #14 tabs docusate sodium 100 mg capsule 100 mg PO BID #14 caps 12/20/22 (Colace) hydrocodone 10 mg-acetaminophen 1 tab PO Q6H PRN pain #20 tabs 12/20/22 325 mg tablet albuterol sulfate 5 mg/mL(0.5 %) 5 mg inhalation Q6H PRN shortness 01/22/24 solution for nebulization of breath or wheezing #75 mL Allergies Allergy/AdvReac Type Severity Reaction Status Date / Time Penicillins Allergy Unknown Verified 09/23/23 19:58 Sulfa (Sulfonamide Allergy Unknown Verified 09/23/23 19:58 Antibiotics) PFSH ED 2 PFSH: Medical History Bladder cancer Bladder mass Mass of right testicle Urinary incontinence No pertinent family history Organic affective disorder Memory impairment Traumatic brain injury Surgical History S/P hernia surgery Family History Father Liver disease Mother Cancer Social History Smoking and tobacco/nicotine status: former use of tobacco/nicotine Alcohol intake: never Substance/Drug Use: never Marital status: Single Current occupational status: disabled Physical Exam 2 Const: COMMON NORMALS: no acute distress GENERAL APPEARANCE: cooperative and frail appearing (mildly); not ill appearing HENMT: COMMON NORMALS: normocephalic, atraumatic and Normal external nose present HEAD & SCALP: normocephalic and atraumatic FACE & SINUS: normal facial exam and face symmetric NOSE: Normal external nose present Eye: COMMON NORMALS: Equal, round and reactive pupils present and EOMs intact bilaterally PUPIL: Yes Equal, round and reactive pupils present Neck/C-Spine: GENERAL: Yes trachea midline Chest: CHEST: Yes Symmetrical chest wall rise Resp: COMMON NORMALS: normal respiratory effort, No retractions, No use of accessory muscles and clear to auscultation bilaterally AUSCULTATION: clear to auscultation bilaterally Cardio: COMMON NORMALS: regular rate and regular rhythm RATE: regular rate RHYTHM: regular rhythm GI: COMMON NORMALS: Normal to inspection, nondistended, normoactive bowel sounds present PALPATION: No Tenderness to palpation present (GI) Extremity: COMMON NORMALS: no pedal edema Neuro: MARAL COMA SCALE: document GCS findings [place] coma scale eye opening: Spontaneous [place] coma scale verbal response: Orientated [place] coma scale motor response: Obey commands [place] coma scale total score: 15 S ENSORY EXAM: Yes extremities (intact) Psych: COMMON NORMALS: speech normal SPEECH: Yes normal speech Skin: NARRATIVE SKIN EXAM: chronic stasis changes to BLE. No cellulitis Course 2 Vital Signs: Vital signs: Vital Signs Temperature 97.7 F 01/21/24 21:49 Pulse Rate 54 L 01/22/24 03:43 Respiratory Rate 17 01/22/24 03:43 Blood Pressure 111/59 01/22/24 03:43 Pulse Oximetry 96 01/22/24 03:43 MDM - Fever Medical Decision Making Patient is afebrile here. He is awake alert and talking. His CBC is normal. His BMP shows a creatinine of 1.4. His chest x-ray shows mild coarsening of the bibasilar markings due to bronchitis or airways disease without pneumonia. He is negative for COVID, flu, and RSV. He is not requiring oxygen. His vitals are stable. He will be allowed discharge back to the half-way. To return for any worsening symptoms. Lab Data 01/21/24 22:44 01/21/24 22:44 Radiology Impressions Chest X-Ray 01/21/24 22:32 IMPRESSION: Mild coarsening of the basilar lung markings due to bronchitis or airways disease, without focal consolidation. Laboratory Results WBC 4.56 10^3/uL (3.29-11.43) 01/21/24 22:44 RBC 4.62 10^6/uL (3.85-5.65) 01/21/24 22:44 Hgb 14.20 g/dL (11.27-16.99) 01/21/24 22:44 Hct 42.4 % (37-53) 01/21/24 22:44 MCV 91.8 fl (82-101) 01/21/24 22:44 MCH 30.7 pg (27-33) 01/21/24 22:44 MCHC 33.5 g/dL (30-55) 01/21/24 22:44 RDW 13.0 % (12.1-15.1) 01/21/24 22:44 Plt Count 191 10^3/cmm (157-399) 01/21/24 22:44 MPV 9.3 fL (7.4-10.4) 01/21/24 22:44 Neut % (Auto) 89.9 % 01/21/24 22:44 Lymph % (Auto) 3.1 % 01/21/24 22:44 [place] % (Auto) 6.6 % 01/21/24 22:44 Eos % (Auto) 0.0 % 01/21/24 22:44 Baso % (Auto) 0.0 % 01/21/24 22:44 Neut # (Auto) 4.10 10^3/uL (1.8-7.7) 01/21/24 22:44 Lymph # (Auto) 0.1 10^3/uL (0.8-4.8) L 01/21/24 22:44 [place] # (Auto) 0.3 10^3/uL (0.2-0.9) 01/21/24 22:44 Eos # (Auto) 0.0 10^3/uL (0.0-0.8) 01/21/24 22:44 Baso # (Auto) 0.0 10^3/uL (0.0-0.1) 01/21/24 22:44 Nucleated RBC % (auto) 0 % 01/21/24 22:44 Nucleated RBCs # 0.0 /100WBC 01/21/24 22:44 Sodium 142 mmol/L (136-145) 01/21/24 22:44 Potassium 4.0 mmol/L (3.5-5.1) 01/21/24 22:44 Chloride 105 mmol/L (98-107) 01/21/24 22:44 Carbon Dioxide 28 mmol/L (22-29) 01/21/24 22:44 Anion Gap 13.0 (5-19) 01/21/24 22:44 BUN 37 mg/dL (8-23) H 01/21/24 22:44 Creatinine 1.4 mg/dL (0.7-1.2) H 01/21/24 22:44 GFR Calculation Not Reportable 01/21/24 22:44 Glucose 132 mg/dL (65-115) H 01/21/24 22:44 Calculated Osmolality 305 mOsm/kg (285-295) H 01/21/24 22:44 Lactic Acid 1.5 mmol/L (0.5-2.2) 01/21/24 22:44 Calcium 8.6 mg/dL (8.5-10.5) 01/21/24 22:44 Total Bilirubin 0.5 mg/dL (0.15-1.2) 01/21/24 22:44 AST 23 U/L (0-40) 01/21/24 22:44 ALT 12 U/L (0-41) 01/21/24 22:44 Alkaline Phosphatase 46 U/L (40-130) 01/21/24 22:44 Total Protein 6.1 g/dL (6.6-8.7) L 01/21/24 22:44 Albumin 3.9 g/dL (3.5-5.2) 01/21/24 22:44 Globulin 2.2 g/dL (1.3-4.6) 01/21/24 22:44 Urine Color Yellow (Yellow) 01/22/24 00:00 Urine Appearance Clear (CLEAR) 01/22/24 00:00 Urine pH 5.0 (5-7) 01/22/24 00:00 Ur Specific [place] 1.020 (1.005-1.030) 01/22/24 00:00 Urine Protein Negative (Negative) 01/22/24 00:00 Urine Glucose (UA) Negative (Normal) 01/22/24 00:00 Urine Ketones Negative (Negative) 01/22/24 00:00 Urine Blood Negative (Negative) 01/22/24 00:00 Urine Nitrate Negative (Negative) 01/22/24 00:00 Urine Bilirubin Negative (Negative) 01/22/24 00:00 Urine Urobilinogen 1.0 mg/dL (Negative) 01/22/24 00:00 Ur Leukocyte Esterase Negative (Negative) 01/22/24 00:00 Urine RBC 0-2 /hpf (0-2) 01/22/24 00:00 Urine WBC 0-5 /hpf (0-5) 01/22/24 00:00 Ur Squamous Epith Cells 0-5 /hpf (0-5) 01/22/24 00:00 Amorphous Sediment Not Reportable 01/22/24 00:00 Urine Bacteria None seen /hpf (NONE) 01/22/24 00:00 Hyaline Casts 3.71 /lpf 01/22/24 00:00 Urine Mucus 1+ /hpf 01/22/24 00:00 Coronavirus (PCR) Negative (Negative) 01/21/24 22:42 Influenza A (PCR) Negative (Negative) 01/21/24 22:42 Influenza Type B (PCR) Negative (Negative) 01/21/24 22:42 RSV (PCR) Negative (Negative) 01/21/24 22:42 All radiology interpretation(s) finalized by discharge Discharge Plan Discharge Patient Disposition: Home Clinical Impression: Bronchitis Condition: Stable Prescriptions: New albuterol sulfate 5 mg/mL solution for nebulization 5 mg inhalation Q6H PRN (Reason: shortness of breath or wheezing) Qty: 75 0RF No Action multivitamin Tablet 1 tab PO DAILY@07 donepezil 10 mg Tablet 10 mg PO BEDTIME@20 acetaminophen [Tylenol Extra Strength] 500 mg Tablet 1,000 mg PO .Q4-6H PRN (Reason: Pain) Hold Instructions: Resume on 12/25/22. zonisamide 100 mg Capsule 400 mg PO DAILY@07 magnesium hydroxide [Milk of Magnesia] 400 mg/5 mL Suspension 30 ml PO .Q4-6H PRN (Reason: Constipation) docusate sodium [Colace] 100 mg Capsule 200 mg PO BEDTIME@20 ammonium lactate 12 % Cream 1 applic TOPICAL BID@, Rx Instructions: on bilat legs memantine [Namenda] 10 mg Tablet 10 mg PO BID@,20 dextromethorphan-guaifenesin 10-100 mg/5 mL Liquid 10 ml PO PRN PRN (Reason: Cough) cholecalciferol (vitamin D3) [Vitamin D3] 50 mcg (2,000 unit) Capsule 50 mcg PO DAILY@07 fluoride (sodium) [Denta 5000 Plus] 1.1 % Cream See Rx Instructions .ROUTE .COMPLEX Rx Instructions: brush on teeth bid *do not eat or drink for 30 mins after* ondansetron 4 mg tablet,disintegrating 4 mg PO Q6H PRN (Reason: nausea and vomiting) Qty: 14 0RF hydrocodone-acetaminophen 10-325 mg tablet 1 tab PO Q6H PRN (Reason: pain) Qty: 20 0RF Rx Instructions: May take half of a tab at a time Colace 100 mg capsule 100 mg PO BID Qty: 14 0RF Discharge Orders: Discharge ED (Routine); Ordered 01/22/24 Ordered By: Edgar Yañez Referrals: Kris Watson MD [Primary Care Provider] - 1-3 days Patient Instructions: Acute Bronchitis (ED), Opioid Safety, Pain Management Activity Restrictions/Additional Instructions: Watch for fevers and treat accordingly. Return for worsening shortness of breath, mental status changes, development of other new or concerning symptoms. You may use the nebulizer solution for any breathing problems such as wheezing, cough, etc. Coding Level of Care Code ED Algorithm Developer for Lupe Navarro
[2024-01-22 03:43] VITALS: BP 111/59; PULSE 54; RESP 17; O2SAT 96
== END 2024-01-22 03:59 | disposition home or self-care (01) ==
PROVIDERS: Emergency Provider Emergency Medicine; PCP Family Medicine
DX: J40 Bronchitis, not specified as acute or chronic (principal); Z11.52 Encounter for screening for COVID-19; Z87.891 Personal history of nicotine dependence; C67.9 Malignant neoplasm of bladder, unspecified
CPT/HCPCS: 0241U; 36415; 71045; 80053; 81001; 83605; 85025; 99284

== ENCOUNTER 2024-05-20 19:43 | Emergency (ER) | payer MEDICARE, MEDICAID, SELFPAY ==
[2024-05-20 19:46] VITALS: BP 134/62; PULSE 54; RESP 18; TEMP 36.4; O2SAT 99
[2024-05-20 19:54] VITALS: BP 114/70; PULSE 60; RESP 16; O2SAT 97
--- NOTE | 2024-05-20 20:19 | XRR_ITS ---
PROCEDURE INFORMATION: Exam: XR Chest Exam date and time: 05/20/2024 8:22 PM Age: 84 years old Clinical indication: Other: Hypotension TECHNIQUE: Imaging protocol: Radiologic exam of the chest. Views: 1 view. COMPARISON: CR XR chest 1V portable [id number] 01/21/2024 10:34 PM FINDINGS: Tubes, catheters and devices: None. Lungs: Pleural and lung parenchymal linear scarring identified within bilateral apices. Linear density identified within bilateral lungs. Pleural spaces: No pleural effusion identified. No pneumothorax identified. Heart/Mediastinum: Coronary arterial calcifications are demonstrated. Vasculature: Mild atherosclerotic calcification demonstrated within the aorta. Bones/joints: Diffusely decreased bone density. Mild to moderate generalized bony degenerative changes. Bony structures appear otherwise unremarkable. XR/XR chest 1V portable [id number] IMPRESSION: 1. Linear bilateral chest pulmonary atelectasis, or scarring. 2. Chronic findings.
--- NOTE | 2024-05-20 20:20 | ECG_ITS ---
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
[2024-05-20 20:27] LABS: Add Urine Microscopic? NO
[2024-05-20 20:30] LABS: Basophils % 0.6 %; Hematocrit 39.9 % (37-53); Lymphocytes # 0.7 10^3/uL (0.8-4.8); Lymphocytes % 20.3 %; Mean Corpuscular HGB Conc 32.8 g/dL (30-55); Mean Corpuscular Hemoglobin 31.2 pg (27-33); Mean Platelet Volume 9.5 fL (7.4-10.4); Monocytes # 0.6 10^3/uL (0.2-0.9); Monocytes % 17.2 %; Neutrophils # 2.19 10^3/uL (1.8-7.7); Neutrophils % 61.6 %; Nucleated Red Blood Cells % 0 %; Platelet Count 213 10^3/cmm (157-399); Red Cell Distribution Width 13.2 % (12.1-15.1); White Blood Count 3.55 10^3/uL (3.29-11.43)
[2024-05-20] MEDS: sodium chloride 0.9% 1,000 ML 999 ML IV (20:39)
--- NOTE | 2024-05-20 20:40 | W.ED.RECABL ---
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 He has cognitive impairment because of this. He presents from the [facility], where they were concerned about his blood pressure being somewhat low. The patient is asymptomatic. He does complain of some chronic right sided thoracic back pain. He is normotensive here. Related Data Home Medications ?Medication ?Instructions ?Recorded ?Confirmed acetaminophen 500 mg tablet 1,000 mg PO .Q4-6H PRN Pain 08/09/19 01/04/23 (Tylenol Extra Strength) Held on 12/20/22. Instructions: Resume on 12/25/22. ammonium lactate 12 % topical cream 1 applic topical BID@08/09/19 01/04/23 docusate sodium 100 mg capsule 200 mg PO BEDTIME@08/09/19 01/04/23 (Colace) donepezil 10 mg tablet 10 mg PO BEDTIME@08/09/19 01/04/23 magnesium hydroxide 400 mg/5 mL 30 ml PO .Q4-6H PRN Constipation 08/09/19 01/04/23 oral suspension (Milk of Magnesia) memantine 10 mg tablet (Namenda) 10 mg PO BID@08/09/19 01/04/23 multivitamin 1 tab PO DAILY@08/09/19 01/04/23 zonisamide 100 mg capsule 400 mg PO DAILY@08/09/19 01/04/23 cholecalciferol (vitamin D3) 50 50 mcg PO DAILY@09/02/21 01/04/23 mcg (2,000 unit) capsule (Vitamin D3) dextromethorphan-guaifenesin 10 10 ml PO PRN PRN Cough 09/02/21 01/04/23 mg-100 mg/5 mL oral liquid fluoride (sodium) 1.1 % dental See Rx Instructions .Route .COMPLEX 09/02/21 01/04/23 cream (Denta 5000 Plus) Previous Rx's ?Medication ?Instructions ?Recorded ondansetron 4 mg disintegrating 4 mg PO Q6H PRN nausea and 07/18/22 tablet vomiting #14 tabs docusate sodium 100 mg capsule 100 mg PO BID #14 caps 12/20/22 (Colace) hydrocodone 10 mg-acetaminophen 1 tab PO Q6H PRN pain #20 tabs 12/20/22 325 mg tablet albuterol sulfate 5 mg/mL(0.5 %) 5 mg inhalation Q6H PRN shortness 01/22/24 solution for nebulization of breath or wheezing #75 mL Allergies Allergy/AdvReac Type Severity Reaction Status Date / Time Penicillins Allergy Unknown Verified 09/23/23 19:58 Sulfa (Sulfonamide Allergy Unknown Verified 09/23/23 19:58 Antibiotics) PFSH ED PFSH: Medical History Bladder cancer Bladder mass Mass of right testicle Urinary incontinence No pertinent family history Organic affective disorder Memory impairment Traumatic brain injury Surgical History S/P hernia surgery Family History Father Liver disease Mother Cancer Social History Smoking and tobacco/nicotine status: never used tobacco/nicotine Alcohol intake: never Substance/Drug Use: never Marital status: Single Current occupational status: disabled Physical Exam Const: COMMON NORMALS: no acute distress GENERAL APPEARANCE: cooperative, comfortable and well kempt; not ill appearing ORIENTATION/CONSCIOUSNESS: Yes awake, Yes oriented to person and Yes oriented to place; not oriented to time HENMT: COMMON NORMALS: normocephalic, atraumatic and Normal external nose present HEAD & SCALP: normocephalic and atraumatic FACE & SINUS: normal facial exam and face symmetric NOSE: Normal external nose present Eye: COMMON NORMALS: Equal, round and reactive pupils present and EOMs intact bilaterally PUPIL: Yes Equal, round and reactive pupils present Neck/C-Spine: GENERAL: Yes trachea midline Chest: CHEST: Yes Symmetrical chest wall rise Resp: COMMON NORMALS: normal respiratory effort, No retractions, No use of accessory muscles and clear to auscultation bilaterally AUSCULTATION: clear to auscultation bilaterally Cardio: COMMON NORMALS: regular rate and regular rhythm RATE: regular rate RHYTHM: regular rhythm GI: COMMON NORMALS: Normal to inspection, nondistended, normoactive bowel sounds present Extremity: COMMON NORMALS: no pedal edema Neuro: MARAL COMA SCALE: document GCS findings Maral coma scale eye opening: Spontaneous [place] coma scale verbal response: Orientated [place] coma scale motor response: Obey commands [place] coma scale total score: 15 SENSORIUM/ORIENTATION: Yes oriented to person, Yes oriented to place and No oriented to time SENSORY EXAM: Yes extremities (intact) Psych: COMMON NORMALS: speech normal APPEARANCE: Yes well kempt SPEECH: Yes normal speech Skin: COMMON NORMALS: no rashes or lesions noted GENERAL SKIN EXAM: no rashes or lesions noted Course Vital Signs: Vital signs: Vital Signs Temperature 97.6 F 05/20/24 19:46 Pulse Rate 60 05/20/24 21:57 Respiratory Rate 16 05/20/24 19:54 Blood Pressure 122/65 05/20/24 21:57 Pulse Oximetry 99 05/20/24 21:57 Oxygen Delivery Me thod Room Air 05/20/24 19:46 MDM - Recheck/Abnormal Lab/Rx Medical Decision Making Patient's BUN and creatinine are mildly elevated. These are stable from prior. Other laboratory is benign. Chest x-ray is nonacute. Urinalysis is negative. He is given a liter of fluid. He remains normotensive here, although somewhat bradycardic at times not severe. Never below 50.. His mental status appears baseline. He will be discharged home. Lab Data 05/20/24 19:40 05/20/24 19:40 Radiology Impressions Chest X-Ray 05/20/24 20:19 IMPRESSION: 1. Linear bilateral chest pulmonary atelectasis, or scarring. 2. Chronic findings. Laboratory Results WBC 3.55 10^3/uL (3.29-11.43) 05/20/24 19:40 RBC 4.20 10^6/uL (3.85-5.65) 05/20/24 19:40 Hgb 13.10 g/dL (11.27-16.99) 05/20/24 19:40 Hct 39.9 % (37-53) 05/20/24 19:40 MCV 95.0 fl (82-101) 05/20/24 19:40 MCH 31.2 pg (27-33) 05/20/24 19:40 MCHC 32.8 g/dL (30-55) 05/20/24 19:40 RDW 13.2 % (12.1-15.1) 05/20/24 19:40 Plt Count 213 10^3/cmm (157-399) 05/20/24 19:40 MPV 9.5 fL (7.4-10.4) 05/20/24 19:40 Neut % (Auto) 61.6 % 05/20/24 19:40 Lymph % (Auto) 20.3 % 05/20/24 19:40 [place] % (Auto) 17.2 % 05/20/24 19:40 Eos % (Auto) 0.0 % 05/20/24 19:40 Baso % (Auto) 0.6 % 05/20/24 19:40 Neut # (Auto) 2.19 10^3/uL (1.8-7.7) 05/20/24 19:40 Lymph # (Auto) 0.7 10^3/uL (0.8-4.8) L 05/20/24 19:40 [place] # (Auto) 0.6 10^3/uL (0.2-0.9) 05/20/24 19:40 Eos # (Auto) 0.0 10^3/uL (0.0-0.8) 05/20/24 19:40 Baso # (Auto) 0.0 10^3/uL (0.0-0.1) 05/20/24 19:40 Nucleated RBC % (auto) 0 % 05/20/24 19:40 Nucleated RBCs # 0.0 /100WBC 05/20/24 19:40 Sodium 146 mmol/L (136-145) H 05/20/24 19:40 Potassium 4.1 mmol/L (3.5-5.1) 05/20/24 19:40 Chloride 107 mmol/L (98-107) 05/20/24 19:40 Carbon Dioxide 31 mmol/L (22-29) H 05/20/24 19:40 Anion Gap 12.1 (5-19) 05/20/24 19:40 BUN 37 mg/dL (8-23) H 05/20/24 19:40 Creatinine 1.4 mg/dL (0.7-1.2) H 05/20/24 19:40 GFR Calculation Not Reportable 05/20/24 19:40 Glucose 89 mg/dL (65-115) 05/20/24 19:40 Calculated Osmolality 310 mOsm/kg (285-295) H 05/20/24 19:40 Calcium 8.7 mg/dL (8.5-10.5) 05/20/24 19:40 Total Bilirubin 0.3 mg/dL (0.15-1.2) 05/20/24 19:40 AST 33 U/L (0-40) 05/20/24 19:40 ALT 30 U/L (0-41) 05/20/24 19:40 Alkaline Phosphatase 73 U/L (40-130) 05/20/24 19:40 Total Protein 6.7 g/dL (6.6-8.7) 05/20/24 19:40 Albumin 4.2 g/dL (3.5-5.2) 05/20/24 19:40 Globulin 2.5 g/dL (1.3-4.6) 05/20/24 19:40 Urine Color Yellow (Yellow) 05/20/24 20:07 Urine Appearance Clear (CLEAR) 05/20/24 20:07 Urine pH 7 (5-7) 05/20/24 20:07 Ur Specific [place] 1.005 (1.005-1.030) 05/20/24 20:07 Urine Protein Neg (Negative) 05/20/24 20:07 Urine Glucose (UA) Norm (Normal) 05/20/24 20:07 Urine Ketones Negative (Negative) 05/20/24 20:07 Urine Blood Neg (Negative) 05/20/24 20:07 Urine Nitrate Negative (Negative) 05/20/24 20:07 Urine Bilirubin Neg (Negative) 05/20/24 20:07 Urine Urobilinogen 1 mg/dL (Negative) H 05/20/24 20:07 Ur Leukocyte Esterase Negative (Negative) 05/20/24 20:07 Amorphous Sediment Not Reportable 05/20/24 20:07 All radiology interpretation(s) finalized by discharge Discharge Plan Discharge Patient Disposition: Home Clinical Impression: Bradycardia, sinus Condition: Stable Prescriptions: No Action multivitamin Tablet 1 tab PO DAILY@07 donepezil 10 mg Tablet 10 mg PO BEDTIME@20 acetaminophen [Tylenol Extra Strength] 500 mg Tablet 1,000 mg PO .Q4-6H PRN (Reason: Pain) zonisamide 100 mg Capsule 400 mg PO DAILY@07 magnesium hydroxide [Milk of Magnesia] 400 mg/5 mL Suspension 30 ml PO .Q4-6H PRN (Reason: Constipation) docusate sodium [Colace] 100 mg Capsule 200 mg PO BEDTIME@20 ammonium lactate 12 % Cream 1 applic TOPICAL BID@07,20 Rx Instructions: on bilat legs memantine [Namenda] 10 mg Tablet 10 mg PO BID@07,20 dextromethorphan-guaifenesin 10-100 mg/5 mL Liquid 10 ml PO PRN PRN (Reason: Cough) cholecalciferol (vitamin D3) [Vitamin D3] 50 mcg (2,000 unit) Capsule 50 mcg PO DAILY@07 fluoride (sodium) [Denta 5000 Plus] 1.1 % Cream See Rx Instructions .ROUTE .COMPLEX Rx Instructions: brush on teeth bid *do not eat or drink for 30 mins after* ondansetron 4 mg tablet,disintegrating 4 mg PO Q6H PRN (Reason: nausea and vomiting) Qty: 14 0RF hydrocodone-acetaminophen 10-325 mg tablet 1 tab PO Q6H PRN (Reason: pain) Qty: 20 0RF Rx Instructions: May take half of a tab at a time Colace 100 mg capsule 100 mg PO BID Qty: 14 0RF albuterol sulfate 5 mg/mL solution for nebulization 5 mg inhalation Q6H PRN (Reason: shortness of breath or wheezing) Qty: 75 0RF Discharge Orders: Discharge ED (Routine); Ordered 05/20/24 Ordered By: Edgar Yañez Referrals: Kris Watson MD [Primary Care Provider] - 1-3 days Patient Instructions: Bradycardia (ED), Opioid Safety, Pain Management Activity Restrictions/Additional Instructions: Stay hydrated. Return for any problems. Print Language: Hebrew Coding Level of Care Code ED Transmitter Tester for Lupe Navarro
[2024-05-20 20:45] LABS: Bilirubin Urine Neg (Negative); Blood Urine Neg (Negative); Charge for UA Resulting for Rev; Glucose Urine UA Norm (Normal); Ketones Urine Negative (Negative); Leukocyte Esterase Urine Negative (Negative); Nitrate Urine Negative (Negative); Protein Urine Neg (Negative); Specific Gravity, Urine 1.005 (1.005-1.030); Urine Appearance Clear (CLEAR); Urine Color Yellow (Yellow); Urobilinogen Urine 1 mg/dL (Negative); pH Urine 7 (5-7)
[2024-05-20 20:48] LABS: Alanine Aminotransferase 30 U/L (0-41); Albumin Level 4.2 g/dL (3.5-5.2); Alkaline Phosphatase 73 U/L (40-130); Anion Gap 12.1 (5-19); Aspartate Amino Transferase 33 U/L (0-40); Blood Urea Nitrogen 37 mg/dL (8-23); Calcium 8.7 mg/dL (8.5-10.5); Carbon Dioxide 31 mmol/L (22-29); Chloride 107 mmol/L (98-107); Globulin 2.5 g/dL (1.3-4.6); Glucose 89 mg/dL (65-115); Osmolality Calculated 310 mOsm/kg (285-295); Potassium 4.1 mmol/L (3.5-5.1); Sodium 146 mmol/L (136-145); Total Bilirubin 0.3 mg/dL (0.15-1.2); Total Protein 6.7 g/dL (6.6-8.7)
[2024-05-20 21:57] VITALS: BP 122/65; PULSE 60; O2SAT 99
== END 2024-05-20 21:58 | disposition home or self-care (01) ==
PROVIDERS: Emergency Provider Emergency Medicine; PCP Family Medicine
DX: R00.1 Bradycardia, unspecified (principal); Z85.51 Personal history of malignant neoplasm of bladder
CPT/HCPCS: 71045; 80053; 81003; 85025; 93005; 96360; 99285; J7030

== ENCOUNTER → 2024-11-27 09:32 | Outpatient (BNVA) | payer MEDICARE, MEDICAID, SELFPAY | PROVIDERS: PCP Family Medicine; Visit Provider Nurse Practitioner Family | DX: I87.2 Venous insufficiency (chronic) (peripheral) (principal); D22.5 Melanocytic nevi of trunk; L57.8 Other skin changes due to chronic exposure to nonionizing radiation; L81.4 Other melanin hyperpigmentation; L82.1 Other seborrheic keratosis; D48.5 Neoplasm of uncertain behavior of skin; L29.89 Other pruritus | CPT/HCPCS: 11102; 99213 ==

== ENCOUNTER → 2024-11-28 08:49 | Outpatient (BNVA) | payer MEDICARE, MEDICAID, SELFPAY | PROVIDERS: PCP Family Medicine; Visit Provider Podiatrist Foot & Ankle Surgery | DX: M79.604 Pain in right leg (principal); S86.891A Other injury of other muscle(s) and tendon(s) at lower leg level, right leg, initial encounter; X58.XXXA Exposure to other specified factors, initial encounter | CPT/HCPCS: 73590; 99203 ==

== ENCOUNTER → 2025-01-09 10:21 | Outpatient (BNVA) | payer MEDICARE, MEDICAID, SELFPAY | PROVIDERS: PCP Family Medicine; Visit Provider Podiatrist Foot & Ankle Surgery | DX: M79.604 Pain in right leg (principal); S86.891A Other injury of other muscle(s) and tendon(s) at lower leg level, right leg, initial encounter; X58.XXXA Exposure to other specified factors, initial encounter | CPT/HCPCS: 99213 ==